=== PATIENT | female | born 1940 | race African-American/Black ===

== ENCOUNTER 2016-10-09 09:07 | Emergency (ER) | payer MEDICARE, OTHER ==
[~2016-10-09] VITALS: Ht 157.5 cm; Wt 64.9 kg
[~2016-10-09 09:07] MED LIST: ALLO100T PO; ALLO100T66 PO; AMLO5TAB4 PO; ASCO500T2 PO; ASCO500T3 PO; ASPI-39 PO; ASPI81TA2 PO; CA C1TAB38 PO; CALC-53 PO; CAND1TAB PO; CAND1TAB4 PO; CLON0.1T PO; CLON0.1T12 PO; CYAN10002 IJ; DOCU-27 PO; FELO10TA PO; FERR324T14 PO; FLUC100T4 PO; FOLI1TAB16 PO; GABA400C PO; HYDR-2666 PO; HYDR-2678 PO; HYDR30CR61 TP; LIDO30CR6 TP; LISI20TA PO; METO-269 PO; PANT40GR PO; PRED20TA PO; PRED5TAB PO; TEMA30CA PO
--- NOTE | 2016-10-09 09:30 | EKG ---
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
[2016-10-09 10:04] LABS: CALCIUM 8.5 mg/dL (8.5-10.1); GFR 8.2; POTASSIUM 3.5 mmol/L (3.5-5.1)
[2016-10-09 10:08] LABS: ALBUMIN 2.8 g/dL (3.4-5.0); ALBUMIN/GLOBULIN RATIO 0.5 (1.0-1.7); BASO % 0 % (0-3); EOS % 5 % (0-3); HEMATOCRIT 28.4 % (36.0-47.0); HEMOGLOBIN 9.2 g/dL (12.0-15.5); LYMPH # 1.4 x10^3/uL (1.0-4.8); LYMPH % 24 % (24-48); MEAN CORPUSCULAR HEMOGLOBIN 29 pg (25-35); MEAN CORPUSCULAR HGB CONC 33 g/dL (31-37); MEAN CORPUSCULAR VOLUME 89 fL (79-100); MONO % 13 % (0-9); NEUT % 57 % (31-73); PLATELET COUNT 99 x10^3/uL (140-400); RED BLOOD COUNT 3.18 x10^6/uL (3.50-5.40); RED CELL DISTRIBUTION WIDTH 19.5 % (11.5-14.5); TOTAL BILIRUBIN 0.9 mg/dL (0.2-1.0); WHITE BLOOD COUNT 5.9 x10^3/uL (4.0-11.0)
--- NOTE | 2016-10-09 10:16 | RAD ---
Portable chest, 10/09/2016: History: Cough, previous heart surgery Comparison is made to a study from 02/26/2014. The heart is mildly enlarged. The thoracic aorta is ectatic and contains a stent graft extending from the mid aortic arch down to the level of the diaphragm. The pulmonary vascularity is normal. No pulmonary infiltrates are seen. There is no evidence of pleural fluid. Mild spurring is present in the spine. Vascular stents are also noted medially in the right upper arm. IMPRESSION: 1. Interval insertion of a stent graft within the patient's ectatic thoracic aorta. 2. No acute cardiopulmonary abnormality is detected.
[2016-10-09] MEDS ORDERED: BENZ100C PO (10:52)
[2016-10-09] MEDS ORDERED: DOXY100C2 PO (10:52)
--- NOTE | 2016-10-09 10:58 | PHYS DOC ---
Past Medical History Past Medical History: Cancer, Hypertension, Renal Failure, Other Additional Past Medical Histor: COLON CA, BREAST CA, hemorroids Past Surgical History: Cancer Surgery, Other Additional Past Surgical Histo: COLON SX, BREAST SX Alcohol Use: Occasionally Drug Use: None Adult General Chief Complaint Chief Complaint: COUGH HPI HPI Patient is a 76 year old female who presents with cough and post-tussive emesis. No known fevers, no associated pain. Pt reports she couldn't complete the last hour of dialysis today due to the cough. She denies missing other sessions. No increased weight gain or orthopnea. No associated pain. Review of Systems Review of Systems Constitutional: Denies fever or chills [] Eyes: Denies change in visual acuity, redness, or eye pain [] HENT: Denies nasal congestion or sore throat [] Respiratory: per hpi Cardiovascular: Denies chest pain GI: Denies abdominal pain, nausea, vomiting, bloody stools or diarrhea [] : Denies dysuria or hematuria [] Musculoskeletal: Denies back pain or joint pain [] Integument: Denies rash or skin lesions [] Neurologic: Denies headache, focal weakness or sensory changes [] Current Medications Current Medications Current Medications Medications (Trade) Dose Ordered Sig/Kalpana Start Time Stop Time Status Last Admin Dose Admin Doxycycline Hyclate 100 mg/ Dextrose 100 ml @ 50 mls/hr 1X ONCE 10/09/16 11:00 10/09/16 12:59 Allergies Allergies Allergies Coded Allergies Type Severity Reaction Last Updated Verified No Known Drug Allergies 11/25/14 No Physical Exam Physical Exam Constitutional: Well developed, well nourished, no acute distress, non-toxic appearance. [] HENT: Normocephalic, atraumatic, bilateral external ears normal, oropharynx moist, no oral exudates, nose normal. [] Eyes: PERRLA, EOMI, conjunctiva normal, no discharge. [] Neck: Normal range of motion, no tenderness, supple, no stridor. [] Cardiovascular:Heart rate regular regular rhythm, no murmur [] Lungs & Thorax: Bilateral breath sounds , RUL crackles without wheeze, moderate air movement. Abdomen: Bowel sounds normal, soft, no tenderness, no masses, no pulsatile masses. [] Skin: Warm, dry, no erythema, no rash. [] Back: No tenderness, no CVA tenderness. [] Extremities: No tenderness, no cyanosis, no clubbing, ROM intact, no edema.neg homen's Neurologic: Alert and oriented X 3, normal motor function, normal sensory function, no focal deficits noted. [] Current Patient Data Vital Signs Vital Signs Date Time Temp Pulse Resp B/P (MAP) Pulse Ox O2 Delivery O2 Flow Rate FiO2 10/09/16 09:26 98.4 78 18 168/73 (104) 95 Room Air 98.4 Lab Values Laboratory Tests Test 10/09/16 09:45 White Blood Count 5.9 x10^3/uL (4.0-11.0) Red Blood Count 3.18 x10^6/uL (3.50-5.40) L Hemoglobin 9.2 g/dL (12.0-15.5) L Hematocrit 28.4 % (36.0-47.0) L Mean Corpuscular Volume 89 fL (79-100) Mean Corpuscular Hemoglobin 29 pg (25-35) Mean Corpuscular Hemoglobin Concent 33 g/dL (31-37) Red Cell Distribution Width 19.5 % (11.5-14.5) H Platelet Count 99 x10^3/uL (140-400) L Neutrophils (%) (Auto) 57 % (31-73) Lymphocytes (%) (Auto) 24 % (24-48) Monocytes (%) (Auto) 13 % (0-9) H Eosinophils (%) (Auto) 5 % (0-3) H Basophils (%) (Auto) 0 % (0-3) Neutrophils # (Auto) 3.4 x10^3uL (1.8-7.7) Lymphocytes # (Auto) 1.4 x10^3/uL (1.0-4.8) Monocytes # (Auto) 0.8 x10^3/uL (0.0-1.1) Eosinophils # (Auto) 0.3 x10^3/uL (0.0-0.7) Basophils # (Auto) 0.0 x10^3/uL (0.0-0.2) Platelet Estimate Pending Sodium Level 137 mmol/L (136-145) Potassium Level 3.5 mmol/L (3.5-5.1) Chloride Level 99 mmol/L (98-107) Carbon Dioxide Level 30 mmol/L (21-32) Anion Gap 8 (6-14) Blood Urea Nitrogen 30 mg/dL (7-20) H Creatinine 6.0 mg/dL (0.6-1.0) H Estimated GFR (Cockcroft-Gault) 8.2 BUN/Creatinine Ratio 5 (6-20) L Glucose Level 87 mg/dL (70-99) Calcium Level 8.5 mg/dL (8.5-10.1) Total Bilirubin 0.9 mg/dL (0.2-1.0) Aspartate Amino Transferase (AST) 20 U/L (15-37) Alanine Aminotransferase (ALT) 12 U/L (14-59) L Alkaline Phosphatase 75 U/L (46-116) Total Protein 8.0 g/dL (6.4-8.2) Albumin 2.8 g/dL (3.4-5.0) L Albumin/Globulin Ratio 0.5 (1.0-1.7) L Laboratory Tests 10/09/16 09:45 Laboratory Tests 10/09/16 09:45 EKG EKG [] 80 bpm, sinus, normal axis, QTC of 493, T-wave inversions in V2 through V6, 1 , 2, aVF, compared with previous EKG and there is no acute change Radiology/Procedures Radiology/Procedures Chest x-ray: Signed PATIENT: AIDEN ELIZABETH ACCOUNT: [id number] : 1940 LOCATION: ER AGE: 76 SEX: F EXAM STATUS: REG ER ORD. PHYSICIAN: ASHLEY MCNAMARA MD REASON: cough PROCEDURE: PORTABLE CHEST 1V Portable chest, 10/09/2016: History: Cough, previous heart surgery Comparison is made to a study from 02/26/2014. The heart is mildly enlarged. The thoracic aorta is ectatic and contains a stent graft extending from the mid aortic arch down to the level of the diaphragm. The pulmonary vascularity is normal. No pulmonary infiltrates are seen. There is no evidence of pleural fluid. Mild spurring is present in the spine. Vascular stents are also noted medially in the right upper arm. IMPRESSION: 1. Interval insertion of a stent graft within the patient's ectatic thoracic aorta. 2. No acute cardiopulmonary abnormality is detected. Course & Med Decision Making Course & Med Decision Making Pertinent Labs and Imaging studies reviewed. (See chart for details) pt has signs /symptoms of pneumonia with crackles noted in RUL. will treat with doxycycline and recommend continuing dialysis as planned. Return if she has worsening symptoms. Pt also given Tessalon pearles. Dragon Disclaimer Dragon Disclaimer This electronic medical record was generated, in whole or in part, using a voice recognition dictation system. Departure Departure Impression: Primary Impression: Cough Additional Impressions: Community acquired pneumonia End stage renal failure on dialysis Chronic anemia Disposition: HOME, SELF-CARE Condition: STABLE Patient Instructions: Cough, Adult, Pamo-hj-[id number] Scripts Benzonatate (TESSALON PERLE) 100 Mg Capsule 1 CAP PO TID Y for COUGH, #15 CAP Prov: ASHLEY MCNAMARA MD 10/09/16 Doxycycline Hyclate (DOXYCYCLINE HYCLATE) 100 Mg Capsule 1 CAP PO BID, #20 CAP Prov: ASHLEY MCNAMARA MD 10/09/16 Problem Qualifiers ASHLEY MCNAMARA MD October 09, 2016 10:58
[2016-10-09] MEDS ORDERED: DOXYCYCLINE HYCLATE 100 MG in IV DEXTROSE 5% 100 ML IV ONE (11:00)
[2016-10-09 12:25] LABS: ANISOCYTOSIS SLIGHT; PLT ESTIMATE DECREASED (ADEQUATE)
[2016-10-09 12:52] VITALS: BP 161/86
== END 2016-10-09 13:25 | disposition home or self-care (01) ==
LOC: ER 09:07
DX: J18.9 Pneumonia, unspecified organism (principal); I12.0 Hypertensive chronic kidney disease with stage 5 chronic kidney disease or end stage renal disease; N18.6 End stage renal disease; D53.9 Nutritional anemia, unspecified; Z99.2 Dependence on renal dialysis
CPT/HCPCS: 36415; 71010; 80053; 85007; 85027; 93005; 96365; 96366; 99285; J3490

== ENCOUNTER → 2017-05-18 | Outpatient (CLI) | payer MEDICARE, OTHER ==
[~2017-05-18] MED LIST changes: +ASPI-630 PO; -ASPI81TA2 PO; +BENZ100C PO; +DOCU-109 PO; -DOCU-27 PO; +DOXY100C2 PO; -HYDR-2666 PO; +HYDR-2758 PO
--- NOTE | 2017-05-19 11:00 | RAD ---
PA AND LATERAL CHEST RADIOGRAPH Clinical Indication: Aortic stent. Comparison: AP chest 10/09/2016. Findings: Stable cardiomegaly. Ectatic thoracic aorta. Stable stent of the mid aortic arch through the ascending thoracic aorta. Atherosclerotic abdominal aorta. Pulmonary vasculature is normal. The lungs are clear. No pleural effusion or pneumothorax is seen. There is no acute bone abnormality. Degenerative endplate spurring of the thoracic spine. IMPRESSION: No acute cardiopulmonary process.
--- NOTE | 2017-05-19 11:03 | RAD ---
KNEE 3 VIEWS RIGHT Clinical Indication: Fall on , right knee pain Comparison: Right knee, 3 views, 05/26/2011. Findings: There is no acute fracture or dislocation. There is medial compartment narrowing. Tiny tricompartmental marginal osteophytes. The patella is in anatomic position. Mild infrapatellar soft tissue swelling. There is no joint effusion. Atherosclerotic vascular calcifications. IMPRESSION: No acute fracture.
== END | disposition home or self-care (01) ==
LOC: RAD 10:19
PROVIDERS: ATTEND Family Medicine
DX: I51.7 Cardiomegaly (principal); I70.0 Atherosclerosis of aorta; M25.561 Pain in right knee; I77.810 Thoracic aortic ectasia; Q25.49 Other congenital malformations of aorta
CPT/HCPCS: 71020; 73562

== ENCOUNTER → 2017-09-25 | Outpatient (CLI) | payer MEDICARE, OTHER | END | disposition home or self-care (01) | LOC: RAD 13:30 | DX: M79.605 Pain in left leg (principal) | CPT/HCPCS: 73552 ==

== ENCOUNTER 2017-09-27 16:44 | Emergency (ER) | payer MEDICARE, OTHER | END 2017-09-27 19:10 | disposition home or self-care (01) | LOC: ER 16:44 | DX: S70.02XA Contusion of left hip, initial encounter (principal); I10 Essential (primary) hypertension; N19 Unspecified kidney failure; X58.XXXA Exposure to other specified factors, initial encounter; Y93.89 Activity, other specified; Y99.8 Other external cause status; Y92.89 Other specified places as the place of occurrence of the external cause | CPT/HCPCS: 76882; 93971; 99284-25 ==

== ENCOUNTER → 2018-07-04 | Day surgery (SDC) | payer MEDICARE, OTHER ==
[~2018-07-04] MED LIST changes: -CAND1TAB4 PO; +CINA30TA2 PO; +GABA-689 PO; -GABA400C PO; -HYDR-2758 PO; +HYDR-2761 PO; +IV NORMAL SALINE 1000ML BAG 1,000 ML IV SCH; +IV RINGERS,LACTATED 1000ML 1,000 ML IV SCH; +LIDOCAINE 1% PF 2 ML VIAL. ID PRN; +LIDOCAINE 1% PF 2 ML VIAL. ONE; +MIDAZOLAM HCL/PF 2 MG/2 ML VIAL. IV PRN; +PROPOFOL 20 ML IV ONE; +SEVE800T9 PO; +fentaNYL PF VIAL 100 MCG/2 ML VIAL IV PRN
[2018-07-04 10:37] VITALS: BP 151/90
--- NOTE | 2018-07-08 09:10 | PATHOLOGY ---
[facility] Accession Number: [id number] . 01 Material submitted: . PART A: ESOPHAGEAL BIOPSY PART B: RANDOM COLON BIOPSIES . 01 Clinical history: . Weight loss, diarrhea, colon cancer . 02 Diagnosis: A. Esophageal biopsies: - Segments of hyperplastic squamous esophageal mucosa showing acute inflammation with presence of yeast and pseudohyphae consistent with Jailene esophagitis, and segments of esophagogastric and gastric mucosa showing acute and chronic inflammation. . B. Colonic mucosa, random colon biopsies: - No significant pathologic abnormalities. LB/07/07/2018 . 02 Comment: Sections of the esophageal biopsy reveal segments of hyperplastic squamous esophageal mucosa showing acute inflammation. A properly controlled PAS stain for fungus is obtained and shows numerous yeast and pseudohyphae. The findings are consistent with Jailene esophagitis. There are also segments of esophagogastric and gastric mucosa showing acute and chronic inflammation. There is no evidence of Pinto's change, dysplasia, or malignancy. . Sections of the random colon biopsy reveal multiple segments of colonic mucosa. There is no evidence of a chronic destructive colitis, lymphocytic colitis, or collagenous colitis. (JPM/db; 07/07/2018) . Special stain performed: PAS stain for yeast/fungi on A1 . 02 Electronically signed: . Tj Ha MD, Pathologist NPI- [id number] . 01 Gross description: . A. Received in formalin labeled "Chavez Sofi, esophageal biopsy, rule out Pinto's, rule out cancer," are multiple segments of andre soft tissue measuring 1.5 x 0.4 x 0.1 cm in aggregate dimensions. The specimen is filtered and entirely submitted in cassette A1. . B. Received in formalin labeled "Chavez Sofi, random colon biopsies," are 4 segments of andre soft tissue measuring 1.0 x 0.9 x 0.3 cm in aggregate dimensions and ranging from 0.3 to 0.6 cm in maximum dimension. The specimen is submitted entirely in cassette B1. (TSD; 07/04/2018) TOB/TOB . 02 Pathologist provided ICD-10: B37.81, R63.4, R19.7 . 02 CPT . 476290, 298491 Specimen Comment: A courtesy copy of this report has been sent to Specimen Comment: [phone], . Specimen Comment: Report sent to / DR CHAN Performed at: 01 [facility] [address], [place] [id number] MD Pascual Boone MD Phone: [phone] Performed at: 02 [facility] [address] [place], [place] [id number] MD Tj Ha MD Phone: [phone]
== END | disposition home or self-care (01) ==
LOC: ENDOS 08:21
PROVIDERS: ATTEND Internal Medicine Gastroenterology
DX: K52.9 Noninfective gastroenteritis and colitis, unspecified (principal); K63.89 Other specified diseases of intestine; K64.0 First degree hemorrhoids; K21.0 Gastro-esophageal reflux disease with esophagitis; F41.9 Anxiety disorder, unspecified; I10 Essential (primary) hypertension; R63.4 Abnormal weight loss; Z80.3 Family history of malignant neoplasm of breast; Z79.82 Long term (current) use of aspirin; Z85.038 Personal history of other malignant neoplasm of large intestine; Z95.810 Presence of automatic (implantable) cardiac defibrillator; Z85.3 Personal history of malignant neoplasm of breast; Z95.5 Presence of coronary angioplasty implant and graft; Z79.899 Other long term (current) drug therapy; Z90.49 Acquired absence of other specified parts of digestive tract; Z98.890 Other specified postprocedural states
CPT/HCPCS: 43239; 45380; J2704; 88305

== ENCOUNTER → 2018-12-16 | Outpatient (CLI) | payer MEDICARE, OTHER ==
[2018-07-04 10:37] VITALS: BP 151/90
[~2018-12-16] MED LIST changes: -IV NORMAL SALINE 1000ML BAG 1,000 ML IV SCH; -IV RINGERS,LACTATED 1000ML 1,000 ML IV SCH; -LIDOCAINE 1% PF 2 ML VIAL. ID PRN; -LIDOCAINE 1% PF 2 ML VIAL. ONE; -MIDAZOLAM HCL/PF 2 MG/2 ML VIAL. IV PRN; -PROPOFOL 20 ML IV ONE; -fentaNYL PF VIAL 100 MCG/2 ML VIAL IV PRN
== END | disposition home or self-care (01) ==
LOC: LAB 11:30
PROVIDERS: ATTEND Internal Medicine Nephrology
DX: I12.0 Hypertensive chronic kidney disease with stage 5 chronic kidney disease or end stage renal disease (principal); N18.6 End stage renal disease; Z99.2 Dependence on renal dialysis
CPT/HCPCS: 36415; 84132

== ENCOUNTER 2020-01-04 15:43 | Inpatient (IN) | payer MEDICARE, OTHER ==
[~2020-01-04] VITALS: Ht 160 cm; Wt 57.2 kg
[~2020-01-04 15:43] MED LIST changes: -ASCO500T2 PO; +ASCO500T4 PO; -FELO10TA PO; +FELO10TA4 PO
[2020-01-04 15:56] VITALS: BP 151/90
[2020-01-04 18:22] LABS: BASO % 1 % (0-3); EOS % 1 % (0-3); HEMATOCRIT 36.8 % (36.0-47.0); HEMOGLOBIN 11.4 g/dL (12.0-15.5); LYMPH # 1.1 x10^3/uL (1.0-4.8); LYMPH % 39 % (24-48); MEAN CORPUSCULAR HEMOGLOBIN 30 pg (25-35); MEAN CORPUSCULAR HGB CONC 31 g/dL (31-37); MEAN CORPUSCULAR VOLUME 96 fL (79-100); MONO # 0.4 x10^3/uL (0.0-1.1); MONO % 13 % (0-9); NEUT # 1.4 x10^3/uL (1.8-7.7); NEUT % 47 % (31-73); PLATELET COUNT 58 x10^3/uL (140-400); RED BLOOD COUNT 3.84 x10^6/uL (3.50-5.40); WHITE BLOOD COUNT 2.9 x10^3/uL (4.0-11.0)
[2020-01-04 18:27] LABS: ALBUMIN 2.8 g/dL (3.4-5.0); ALBUMIN/GLOBULIN RATIO 0.6 (1.0-1.7); CALCIUM 9.4 mg/dL (8.5-10.1); CREATININE 5.8 mg/dL (0.6-1.0); GFR 8.5; POTASSIUM 3.8 mmol/L (3.5-5.1); TOTAL BILIRUBIN 1.2 mg/dL (0.2-1.0); TOTAL PROTEIN 7.7 g/dL (6.4-8.2)
--- NOTE | 2020-01-04 19:19 | HP ---
ADMIT DATE: 01/04/2020 CHIEF COMPLAINT: Shortness of breath. HISTORY OF PRESENT ILLNESS: This is an 79-year-old black female with long history of end-stage renal disease and mild cardiac issues, presented with increasing cough, shortness of breath, fatigue, nausea and vomiting over the last 4-5 days. She was tested for COVID at [facility] about 2 weeks ago. Test was negative and x-ray of her foot for foot injury and pain was negative as well. She has had increasing shortness of breath and scant sputum production with some diarrhea and vomiting since then. PAST MEDICAL HISTORY: Multiple. MEDICATIONS: Listed per the chart. ALLERGIES: No known allergies. She sees Dr. Ramos for her dialysis. SOCIAL HISTORY: She is , nonsmoker, nondrinker. FAMILY HISTORY: Unremarkable. REVIEW OF SYSTEMS: As above. OBJECTIVE: ENT: All within normal limits. NECK: No masses, nodes or bruits. LUNGS: Bibasilar crackles and expiratory wheezes, mild to moderate in nature with rhonchi present diffusely. CARDIOVASCULAR: Regular rate. No irregular beat or tachycardia. ABDOMEN: Soft, benign and nontender. EXTREMITIES: She has shunts in her right arm notable. No joint or skin lesions, 1+ edema in the ankles. NEUROLOGIC: Physiologic and nonfocal. ASSESSMENT: Respiratory distress, multifactorial in nature. Must consider COVID among other infectious diagnoses less likely cardiac or fluid issues, end-stage renal disease, on dialysis as well. PLAN: As ordered. SHIRIN CHAN MD DR: KANDICE/zana JOB#: [id number] / [id number]
[2020-01-04 19:44] VITALS: BP 174/78
[2020-01-04] MEDS: BENZONATATE 100 MG CAPSULE. PO PRN (21:27)
[2020-01-04] MEDS: TEMAZEPAM 15 MG CAPSULE PO PRN (21:30)
[2020-01-04] MEDS: SEVELAMER CARBONATE 800 MG TABLET. PO SCH (21:30)
[2020-01-04] MEDS: ALBUTEROL SULFATE 8GM INHALER. INH SCH (21:31)
--- NOTE | 2020-01-04 22:54 | RAD ---
Exam: Chest one view INDICATION: Shortness of breath TECHNIQUE: Frontal view of the chest Comparisons: None FINDINGS: Heart is enlarged. Aortic stent metallic stent is noted. Pulmonary vessels are within normal limits. Lungs are clear. No pleural effusion. IMPRESSION: Cardiac megaly without acute pulmonary process. Electronically signed by: Cr Whipple MD (01/04/2020 10:51 PM) [id number]
--- NOTE | 2020-01-04 22:55 | RAD ---
EXAM: AP and lateral views right foot DATE: 01/04/2020 7:12 PM INDICATION: Right foot pain COMPARISON: 09/21/2015 FINDINGS: Chronic/healed fracture deformity proximal phalanx right great toe. Hallux valgus. Angulation at the second-fourth metatarsal necks, new compared to 09/21/2015 suspicious for acute or subacute fractures. Forefoot soft tissue swelling is seen. Decreased bone mineral density. IMPRESSION: 1. Suspected acute or subacute fractures of the second-fourth metatarsal necks, new compared to 09/21/2015. 2. Chronic/healed fracture proximal phalanx great toe. Electronically signed by: Faustino Hernandez MD (01/04/2020 10:52 PM) ADRIEN
[2020-01-04 23:05] VITALS: BP 162/72
[2020-01-05 03:48] VITALS: BP 154/71
[2020-01-05] MEDS: methylPREDNISolone SOD SUCC PF 40 MG/ML VIAL. IV SCH ×3 (05:21→21:31)
[2020-01-05 07:00] VITALS: BP 153/67
[2020-01-05] MEDS: ALBUTEROL SULFATE 8GM INHALER. INH SCH ×4 (08:00→21:31)
[2020-01-05] MEDS: SEVELAMER CARBONATE 800 MG TABLET. PO SCH ×3 (08:00→17:28)
--- NOTE | 2020-01-05 08:20 | PDOC ---
Provider Note Provider Note no temp, cxr clear, but wbc 2900, platelts 58K, duration ?, no prior heme history i know of- heme consult, ernesto ,podiatry con. re metatarsal fractures Justicifation of Admission Dx: Justifications for Admission: Justification of Admission Dx: Yes Respiratory Failure: Severe Resp Distress SHIRIN CHAN MD Jan 05, 2020 08:20
[2020-01-05] MEDS: CINACALCET HCL 30 MG TABLET PO SCH (09:00)
[2020-01-05] MEDS ORDERED: ALBUMIN HUMAN 25% 200 ML IV PRN (09:15)
[2020-01-05] MEDS ORDERED: DIALYSIS PATIENT. MC PRN ×2 (09:15)
[2020-01-05] MEDS ORDERED: IV NORMAL SALINE 1000ML BAG 1,000 ML IV PRN ×2 (09:15)
[2020-01-05] MEDS ORDERED: LIDOCAINE 1% PF 2 ML VIAL. ONE (09:26)
[2020-01-05] MEDS ORDERED: LIDOCAINE 1% Multi-Dose 20 ML VIAL. INJ ONE (09:30)
[2020-01-05] MEDS ORDERED: cloNIDine HCL 0.1 MG TABLET PO PRN (11:45)
[2020-01-05] MEDS ORDERED: diphenhydrAMINE 50 MG/ML VIAL IV PRN (11:45)
[2020-01-05] MEDS ORDERED: ACETAMINOPHEN 500 MG TABLET PO ONE (12:30)
--- NOTE | 2020-01-05 13:42 | PDOC2 ---
CONSULT Date of Consult Date of Consult DATE: 01/05/20 TIME: 13:36 Reason for Consult Reason for Consult: ESRD Referring Physician Referring Physician: DUSTIN Identification/Chief Complaint Chief Complaint SOB Source Source: Chart review, Patient History of Present Illness Reason for Visit: THIS IS AN 79 YR OLD PT ON HD FOR HER ESRD. ON OP HD TTS. LAST WENT ON SATURDAY. SHE IS COMPLIANT. SHE IS ADMITTED WITH SOB. COVID 19 TEST PENDING. HER LABS ARE C/W ESRD. ESRD IS DUE TO HTN. SHE IS ANURIC. Past Medical History Cardiovascular: HTN GI: Other Heme/Onc: Anemia NOS Musculoskeletal: Weakness Renal/: Chronic renal failure, UTI Endocrine: Hyperparathyroidism Past Surgical History Past Surgical History AORTIC GRAFT. Past Surgical History: Cholecystectomy, Mastectomy, Tonsillectomy, Colon Resection Family History Family History: No Significant Social History ALCOHOL: none Drugs: None Lives: with Family Current Medications Current Medications Current Medications Levofloxacin/ Dextrose 100 ml @ 100 mls/hr 1X ONCE IV Last administered on 01/05/20at 05:20; Start 01/04/20 at 17:15; Stop 01/04/20 at 18:14; Status DC Methylprednisolone Sodium Succinate (SOLU-Medrol 40MG VIAL) 40 mg Q12HR IV Last administered on 01/05/20at 09:00; Start 01/04/20 at 21:00 Cinacalcet (Sensipar) 30 mg DAILY PO ; Start 01/05/20 at 09:00 Sevelamer Carbonate (Renvela) 2,400 mg TIDWMEALS PO Last administered on 01/04/20at 21:30; Start 01/04/20 at 18:00 Temazepam (Restoril) 30 mg PRN QHS PRN PO INSOMNIA Last administered on 01/04/20at 21:30; Start 01/04/20 at 18:00 Albuterol Sulfate (Ventolin Hfa) 1 puff RTQID INH Last administered on 01/04/20at 21:31; Start 01/04/20 at 20:00 Benzonatate (Tessalon Perle) 200 mg TID PRN PRN PO COUGH Last administered on 01/04/20at 21:27; Start 01/04/20 at 19:15 Famotidine (Pepcid) 20 mg QHS PO ; Start 01/05/20 at 21:00 Sodium Chloride 1,000 ml @ 1,000 mls/hr Q1H PRN IV hypotension; Start 01/05/20 at 09:15; Stop 01/05/20 at 15:14 Albumin Human 200 ml @ 200 mls/hr 1X PRN PRN IV Hypotension; Start 01/05/20 at 09:15; Stop 01/05/20 at 15:14 Sodium Chloride 1,000 ml @ 400 mls/hr Q2H30M PRN IV PATENCY; Start 01/05/20 at 09:15; Stop 01/05/20 at 21:14 Info (PHARMACY MONITORING -- do not chart) 1 each PRN DAILY PRN MC SEE COMMENTS; Start 01/05/20 at 09:15 Info (PHARMACY MONITORING -- do not chart) 1 each PRN DAILY PRN MC SEE COMME NTS; Start 01/05/20 at 09:15 Lidocaine HCl (Lidocaine 1% 20ml Vial) 20 ml 1X ONCE INJ Last administered on 01/05/20at 09:30; Start 01/05/20 at 09:30; Stop 01/05/20 at 09:51; Status DC Lidocaine HCl (Xylocaine-Mpf 1% 2ml Vial) 2 ml STK-MED ONCE .ROUTE ; Start 01/05/20 at 09:26; Stop 01/05/20 at 09:27; Status DC Diphenhydramine HCl (Benadryl) 25 mg 1X PRN PRN IV ITCHING Last administered on 01/05/20at 11:43; Start 01/05/20 at 11:45; Stop 01/06/20 at 11:44 Clonidine HCl (Catapres) 0.1 mg 1X PRN PRN PO SBP > 180 Last administered on 01/05/20at 11:47; Start 01/05/20 at 11:45; Stop 01/06/20 at 11:44 Acetaminophen (Tylenol) 500 mg 1X ONCE PO ; Start 01/05/20 at 12:30; Stop 01/05/20 at 12:31; Status DC Active Scripts Active Reported Sensipar (Cinacalcet Hcl) 30 Mg Tablet 1 Tab PO DAILY Renvela (Sevelamer Carbonate) 800 Mg Tablet 3 Tab PO TID Temazepam 30 Mg Capsule 30 Mg PO PRN QHS Allergies Allergies: Coded Allergies: No Known Drug Allergies (Unverified , 07/04/18) ROS General: YES: Fatigue PSYCHOLOGICAL ROS: YES: Anxiety Eyes: Yes Decreased vision HEENT: YES: Fifi ALLERGY AND IMMUNOLOGY: YES: Seasonal Allergies Respiratory: YES: Cough, Shortness of breath Gastrointestinal: Yes Constipation Genitourinary: YES Other (ANURIA) Musculoskeletal: Yes Joint Pain, Yes Muscular Weakness Neurological: Yes Weakness Skin: Yes Dry Skin Physical Exam General: Alert, Oriented X3, Cooperative, No acute distress HEENT: Atraumatic, PERRLA Lungs: Clear to auscultation Heart: Regular rate, Normal S1, Normal S2 Abdomen: Normal bowel sounds, Soft, No tenderness Extremities: No clubbing Neuro: Normal speech, Sensation intact Psych/Mental Status: Mental status NL, Mood NL MUSCULOSKELETAL: No joint tenderness, No deformity, No swelling Vitals VITALS Vital Signs Date Time Temp Pulse Resp B/P (MAP) Pulse Ox O2 Delivery O2 Flow Rate FiO2 01/05/20 11:47 75 205/94 01/05/20 08:00 Room Air 01/05/20 07:00 97.8 16 97 97.8 01/04/20 23:05 1.5 Labs Labs Laboratory Tests Test 01/04/20 17:50 White Blood Count 2.9 x10^3/uL (4.0-11.0) Red Blood Count 3.84 x10^6/uL (3.50-5.40) Hemoglobin 11.4 g/dL (12.0-15.5) Hematocrit 36.8 % (36.0-47.0) Mean Corpuscular Volume 96 fL (79-100) Mean Corpuscular Hemoglobin 30 pg (25-35) Mean Corpuscular Hemoglobin Concent 31 g/dL (31-37) Red Cell Distribution Width 20.0 % (11.5-14.5) Platelet Count 58 x10^3/uL (140-400) Neutrophils (%) (Auto) 47 % (31-73) Lymphocytes (%) (Auto) 39 % (24-48) Monocytes (%) (Auto) 13 % (0-9) Eosinophils (%) (Auto) 1 % (0-3) Basophils (%) (Auto) 1 % (0-3) Neutrophils # (Auto) 1.4 x10^3/uL (1.8-7.7) Lymphocytes # (Auto) 1.1 x10^3/uL (1.0-4.8) Monocytes # (Auto) 0.4 x10^3/uL (0.0-1.1) Eosinophils # (Auto) 0.0 x10^3/uL (0.0-0.7) Basophils # (Auto) 0.0 x10^3/uL (0.0-0.2) Sodium Level 132 mmol/L (136-145) Potassium Level 3.8 mmol/L (3.5-5.1) Chloride Level 96 mmol/L (98-107) Carbon Dioxide Level 29 mmol/L (21-32) Anion Gap 7 (6-14) Blood Urea Nitrogen 36 mg/dL (7-20) Creatinine 5.8 mg/dL (0.6-1.0) Estimated GFR (Cockcroft-Gault) 8.5 BUN/Creatinine Ratio 6 (6-20) Glucose Level 112 mg/dL (70-99) Calcium Level 9.4 mg/dL (8.5-10.1) Total Bilirubin 1.2 mg/dL (0.2-1.0) Aspartate Amino Transf (AST/SGOT) 17 U/L (15-37) Alanine Aminotransferase (ALT/SGPT) 14 U/L (14-59) Alkaline Phosphatase 82 U/L (46-116) Total Protein 7.7 g/dL (6.4-8.2) Albumin 2.8 g/dL (3.4-5.0) Albumin/Globulin Ratio 0.6 (1.0-1.7) Laboratory Tests Test 01/04/20 17:50 White Blood Count 2.9 x10^3/uL (4.0-11.0) Red Blood Count 3.84 x10^6/uL (3.50-5.40) Hemoglobin 11.4 g/dL (12.0-15.5) Hematocrit 36.8 % (36.0-47.0) Mean Corpuscular Volume 96 fL (79-100) Mean Corpuscular Hemoglobin 30 pg (25-35) Mean Corpuscular Hemoglobin Concent 31 g/dL (31-37) Red Cell Distribution Width 20.0 % (11.5-14.5) Platelet Count 58 x10^3/uL (140-400) Neutrophils (%) (Auto) 47 % (31-73) Lymphocytes (%) (Auto) 39 % (24-48) Monocytes (%) (Auto) 13 % (0-9) Eosinophils (%) (Auto) 1 % (0-3) Basophils (%) (Auto) 1 % (0-3) Neutrophils # (Auto) 1.4 x10^3/uL (1.8-7.7) Lymphocytes # (Auto) 1.1 x10^3/uL (1.0-4.8) Monocytes # (Auto) 0.4 x10^3/uL (0.0-1.1) Eosinophils # (Auto) 0.0 x10^3/uL (0.0-0.7) Basophils # (Auto) 0.0 x10^3/uL (0.0-0.2) Sodium Level 132 mmol/L (136-145) Potassium Level 3.8 mmol/L (3.5-5.1) Chloride Level 96 mmol/L (98-107) Carbon Dioxide Level 29 mmol/L (21-32) Anion Gap 7 (6-14) Blood Urea Nitrogen 36 mg/dL (7-20) Creatinine 5.8 mg/dL (0.6-1.0) Estimated GFR (Cockcroft-Gault) 8.5 BUN/Creatinine Ratio 6 (6-20) Glucose Level 112 mg/dL (70-99) Calcium Level 9.4 mg/dL (8.5-10.1) Total Bilirubin 1.2 mg/dL (0.2-1.0) Aspartate Amino Transf (AST/SGOT) 17 U/L (15-37) Alanine Aminotransferase (ALT/SGPT) 14 U/L (14-59) Alkaline Phosphatase 82 U/L (46-116) Total Protein 7.7 g/dL (6.4-8.2) Albumin 2.8 g/dL (3.4-5.0) Albumin/Globulin Ratio 0.6 (1.0-1.7) Images Images Exam: Chest one view INDICATION: Shortness of breath TECHNIQUE: Frontal view of the chest Comparisons: None FINDINGS: Heart is enlarged. Aortic stent metallic stent is noted. Pulmonary vessels are within normal limits. Lungs are clear. No pleural effusion. IMPRESSION: Cardiac megaly without acute pulmonary process. Assessment/Plan Assessment/Plan IMP DYSPNEA ESRD ANEMIA HTN HX PANCYTOPENIA R FOOT TOE FX PLAN HD TODAY UF TO DW COVID 19 PENDING ELEUTERIO NEEDED WILL FOLLOW ALMA ELIZONDO MD Jan 05, 2020 13:42
--- NOTE | 2020-01-05 14:38 | NUR ---
SW following. Reviewed chart and discussed with RN. Pt from home with spouse. Spoke with spouse who provides pt with transportation to out-patient dialysis on Tuesdays, and Saturdays at [facility], , (fax). Pt has has HH in the past and pt's spouse would like HH orders on discharge. Patient Choice of Vendor form completed and initial referral sent to [facility]. Pt on room air. Pt COVID pending. Pt on a renal diet. SW to follow.
[2020-01-05 15:00] VITALS: BP 110/55
--- NOTE | 2020-01-05 15:29 | PDOC2 ---
CONSULT Date of Consult Date of Consult DATE: 01/05/20 TIME: 15:21 Reason for Consult Reason for Consult: Pancytopenia Referring Physician Referring Physician: Dr. Nix Identification/Chief Complaint Chief Complaint Abdominal pain and nausea Problems: (1) Pancytopenia Source Source: Chart review, Patient History of Present Illness Reason for Visit: Sofi Chavez is an 79-year-old -Mexican female with history of end- stage renal disease who is currently on dialysis. She has been admitted to the hospital after presenting with shortness of breath cough and intractable nausea and vomiting. The patient reports that she has had recurrent episodes of vomiting after consumption of food. She denies weight loss over the past year. She denies hematemesis or melena or hematochezia or bright red blood per rectum. She was recently tested for COVID-19 and this returned negative. Patient denies a prior history of blood disorders. We have been consulted due to pancytopenia that was noted on her blood work. Past Medical History Cardiovascular: HTN GI: Other Heme/Onc: Anemia NOS Musculoskeletal: Weakness Renal/: Chronic renal failure, UTI Endocrine: Hyperparathyroidism Past Surgical History Past Surgical History: Cholecystectomy, Mastectomy, Tonsillectomy, Colon Resection Family History Family History: No Significant Social History ALCOHOL: none Drugs: None Lives: with Family Current Medications Current Medications Current Medications Levofloxacin/ Dextrose 100 ml @ 100 mls/hr 1X ONCE IV Last administered on 01/05/20at 05:20; Start 01/04/20 at 17:15; Stop 01/04/20 at 18:14; Status DC Methylprednisolone Sodium Succinate (SOLU-Medrol 40MG VIAL) 40 mg Q12HR IV Last administered on 01/05/20at 09:00; Start 01/04/20 at 21:00 Cinacalcet (Sensipar) 30 mg DAILY PO ; Start 01/05/20 at 09:00 Sevelamer Carbonate (Renvela) 2,400 mg TIDWMEALS PO Last administered on 01/04/20 21:30; Start 01/04/20 at 18:00 Temazepam (Restoril) 30 mg PRN QHS PRN PO INSOMNIA Last administered on 01/04/20at 21:30; Start 01/04/20 at 18:00 Albuterol Sulfate (Ventolin Hfa) 1 puff RTQID INH Last administered on 01/04/20at 21:31; Start 01/04/20 at 20:00 Benzonatate (Tessalon Perle) 200 mg TID PRN PRN PO COUGH Last administered on 01/04/20at 21:27; Start 01/04/20 at 19:15 Famotidine (Pepcid) 20 mg QHS PO ; Start 01/05/20 at 21:00 Sodium Chloride 1,000 ml @ 1,000 mls/hr Q1H PRN IV hypotension; Start 01/05/20 at 09:15; Stop 01/05/20 at 15:14; Status DC Albumin Human 200 ml @ 200 mls/hr 1X PRN PRN IV Hypotension; Start 01/05/20 at 09:15; Stop 01/05/20 at 15:14; Status DC Sodium Chloride 1,000 ml @ 400 mls/hr Q2H30M PRN IV PATENCY; Start 01/05/20 at 09:15; Stop 01/05/20 at 21:14 Info (PHARMACY MONITORING -- do not chart) 1 each PRN DAILY PRN MC SEE COMMENTS; Start 01/05/20 at 09:15 Info (PHARMACY MONITORING -- do not chart) 1 each PRN DAILY PRN MC SEE COM MENTS; Start 01/05/20 at 09:15 Lidocaine HCl (Lidocaine 1% 20ml Vial) 20 ml 1X ONCE INJ Last administered on 01/05/20at 09:30; Start 01/05/20 at 09:30; Stop 01/05/20 at 09:51; Status DC Lidocaine HCl (Xylocaine-Mpf 1% 2ml Vial) 2 ml STK-MED ONCE .ROUTE ; Start 01/05/20 at 09:26; Stop 01/05/20 at 09:27; Status DC Diphenhydramine HCl (Benadryl) 25 mg 1X PRN PRN IV ITCHING Last administered on 01/05/20at 11:43; Start 01/05/20 at 11:45; Stop 01/06/20 at 11:44 Clonidine HCl (Catapres) 0.1 mg 1X PRN PRN PO SBP > 180 Last administered on 01/05/20at 11:47; Start 01/05/20 at 11:45; Stop 01/06/20 at 11:44 Acetaminophen (Tylenol) 500 mg 1X ONCE PO Last administered on 01/05/20at 12:30; Start 01/05/20 at 12:30; Stop 01/05/20 at 12:31; Status DC Active Scripts Active Reported Sensipar (Cinacalcet Hcl) 30 Mg Tablet 1 Tab PO DAILY Renvela (Sevelamer Carbonate) 800 Mg Tablet 3 Tab PO TID Temazepam 30 Mg Capsule 30 Mg PO PRN QHS Allergies Allergies: Coded Allergies: No Known Drug Allergies (Unverified , 07/04/18) ROS General: No: Chills, Night Sweats PSYCHOLOGICAL ROS: No: Anxiety, Behavioral Disorder Eyes: No Blurry vision, No Decreased vision HEENT: No: Heacaches, Visual Changes ALLERGY AND IMMUNOLOGY: No: Hives, Nasal Congestion Hematological and Lymphatic: No: Bleeding Problems, Brusing ENDOCRINE: No: Breast Changes, Galactorrhea Breast: No New/Changing Breast Lumps, No Nipple changes Respiratory: YES: Cough; No: Hemoptysis, Orthopnea, Pleuritic Pain Cardiovascular: No Chest Pain, No Palpitations Gastrointestinal: Yes Nausea, Yes Vomiting; No Abdominal Pain, No Diarrhea, No Constipation Genitourinary: No Dysuria, No Flank Pain Musculoskeletal: No Gait Disturbance, No Joint Pain Neurological: No Behavorial Changes, No Bowel/Bladder ControlChng Skin: No Dry Skin, No Rash Physical Exam General: Alert, Oriented X3 HEENT: Atraumatic, PERRLA Lungs: Clear to auscultation Heart: Regular rate, Normal S1, Normal S2 Abdomen: Normal bowel sounds, Soft, No tenderness, No hepatosplenomegaly Extremities: No clubbing Skin: No rashes, No breakdown Neuro: Normal speech Psych/Mental Status: Mental status NL MUSCULOSKELETAL: No deformity, No swelling Vitals VITALS Vital Signs Date Time Temp Pulse Resp B/P (MAP) Pulse Ox O2 Delivery O2 Flow Rate FiO2 01/05/20 11:47 75 205/94 01/05/20 08:00 Room Air 01/05/20 07:00 97.8 16 97 97.8 01/04/20 23:05 1.5 Labs Labs Laboratory Tests Test 01/04/20 17:50 White Blood Count 2.9 x10^3/uL (4.0-11.0) Red Blood Count 3.84 x10^6/uL (3.50-5.40) Hemoglobin 11.4 g/dL (12.0-15.5) Hematocrit 36.8 % (36.0-47.0) Mean Corpuscular Volume 96 fL (79-100) Mean Corpuscular Hemoglobin 30 pg (25-35) Mean Corpuscular Hemoglobin Concent 31 g/dL (31-37) Red Cell Distribution Width 20.0 % (11.5-14.5) Platelet Count 58 x10^3/uL (140-400) Neutrophils (%) (Auto) 47 % (31-73) Lymphocytes (%) (Auto) 39 % (24-48) Monocytes (%) (Auto) 13 % (0-9) Eosinophils (%) (Auto) 1 % (0-3) Basophils (%) (Auto) 1 % (0-3) Neutrophils # (Auto) 1.4 x10^3/uL (1.8-7.7) Lymphocytes # (Auto) 1.1 x10^3/uL (1.0-4.8) Monocytes # (Auto) 0.4 x10^3/uL (0.0-1.1) Eosinophils # (Auto) 0.0 x10^3/uL (0.0-0.7) Basophils # (Auto) 0.0 x10^3/uL (0.0-0.2) Sodium Level 132 mmol/L (136-145) Potassium Level 3.8 mmol/L (3.5-5.1) Chloride Level 96 mmol/L (98-107) Carbon Dioxide Level 29 mmol/L (21-32) Anion Gap 7 (6-14) Blood Urea Nitrogen 36 mg/dL (7-20) Creatinine 5.8 mg/dL (0.6-1.0) Estimated GFR (Cockcroft-Gault) 8.5 BUN/Creatinine Ratio 6 (6-20) Glucose Level 112 mg/dL (70-99) Calcium Level 9.4 mg/dL (8.5-10.1) Total Bilirubin 1.2 mg/dL (0.2-1.0) Aspartate Amino Transf (AST/SGOT) 17 U/L (15-37) Alanine Aminotransferase (ALT/SGPT) 14 U/L (14-59) Alkaline Phosphatase 82 U/L (46-116) Total Protein 7.7 g/dL (6.4-8.2) Albumin 2.8 g/dL (3.4-5.0) Albumin/Globulin Ratio 0.6 (1.0-1.7) Laboratory Tests Test 01/04/20 17:50 White Blood Count 2.9 x10^3/uL (4.0-11.0) Red Blood Count 3.84 x10^6/uL (3.50-5.40) Hemoglobin 11.4 g/dL (12.0-15.5) Hematocrit 36.8 % (36.0-47.0) Mean Corpuscular Volume 96 fL (79-100) Mean Corpuscular Hemoglobin 30 pg (25-35) Mean Corpuscular Hemoglobin Concent 31 g/dL (31-37) Red Cell Distribution Width 20.0 % (11.5-14.5) Platelet Count 58 x10^3/uL (140-400) Neutrophils (%) (Auto) 47 % (31-73) Lymphocytes (%) (Auto) 39 % (24-48) Monocytes (%) (Auto) 13 % (0-9) Eosinophils (%) (Auto) 1 % (0-3) Basophils (%) (Auto) 1 % (0-3) Neutrophils # (Auto) 1.4 x10^3/uL (1.8-7.7) Lymphocytes # (Auto) 1.1 x10^3/uL (1.0-4.8) Monocytes # (Auto) 0.4 x10^3/uL (0.0-1.1) Eosinophils # (Auto) 0.0 x10^3/uL (0.0-0.7) Basophils # (Auto) 0.0 x10^3/uL (0.0-0.2) Sodium Level 132 mmol/L (136-145) Potassium Level 3.8 mmol/L (3.5-5.1) Chloride Level 96 mmol/L (98-107) Carbon Dioxide Level 29 mmol/L (21-32) Anion Gap 7 (6-14) Blood Urea Nitrogen 36 mg/dL (7-20) Creatinine 5.8 mg/dL (0.6-1.0) Estimated GFR (Cockcroft-Gault) 8.5 BUN/Creatinine Ratio 6 (6-20) Glucose Level 112 mg/dL (70-99) Calcium Level 9.4 mg/dL (8.5-10.1) Total Bilirubin 1.2 mg/dL (0.2-1.0) Aspartate Amino Transf (AST/SGOT) 17 U/L (15-37) Alanine Aminotransferase (ALT/SGPT) 14 U/L (14-59) Alkaline Phosphatase 82 U/L (46-116) Total Protein 7.7 g/dL (6.4-8.2) Albumin 2.8 g/dL (3.4-5.0) Albumin/Globulin Ratio 0.6 (1.0-1.7) Assessment/Plan Assessment/Plan Assessment: Pancytopenia ESRD on hemodialysis Intractable nausea and vomiting Hypertension Recommendations: -We will check iron studies, B12, copper -Hospital lab does not allow for folate testing. Would recommend checking this as outpatient -Suspect that pancytopenia is likely secondary to myelosuppression from ESRD -Can discuss further evaluation with bone marrow biopsy as outpatient -Consider EGD for intractable nausea and vomiting -Other care per Dr. Nix and nephrology Thank you for the consult Alcides Gomez MD Medical Oncology/Hematology Ph: [phone] AXEL GOMEZ MD Jan 05, 2020 15:29
[2020-01-05] MEDS ORDERED: ONDANSETRON PF 4 MG/2 ML VIAL. IVP PRN (18:00)
[2020-01-05 19:00] VITALS: BP 105/67
[2020-01-05] MEDS: FAMOTIDINE 20 MG TABLET. PO SCH (21:31)
[2020-01-05] MEDS: TEMAZEPAM 15 MG CAPSULE PO PRN (21:31)
[2020-01-05] MEDS: BENZONATATE 100 MG CAPSULE. PO PRN (21:31)
[2020-01-05 23:25] VITALS: BP 109/64
[2020-01-06 03:15] VITALS: BP 119/78
[2020-01-06 07:00] VITALS: BP 126/94
[2020-01-06] MEDS: ALBUTEROL SULFATE 8GM INHALER. INH SCH ×4 (08:00→20:00)
--- NOTE | 2020-01-06 08:11 | PDOC ---
Provider Note Provider Note vss, no temp- heme labs ok- pod. conult re fractures pending- covid neg so add duoneb for wheezing- sleeping now, no dyspnea, O2 sat good- will likely need snf re foot fractures/dialysis/ general weakness- po pred now, see how gi status goes Justicifation of Admission Dx: Justifications for Admission: Justification of Admission Dx: Yes Respiratory Failure: Severe Resp Distress SHIRIN CHAN MD Jan 06, 2020 08:11
[2020-01-06] MEDS: IPRATRPIUM/ALBUTEROL 0.5/2.5MG 3 ML NEBU. NEB SCH ×3 (09:00→20:57)
[2020-01-06] MEDS: SEVELAMER CARBONATE 800 MG TABLET. PO SCH ×3 (09:33→17:00)
[2020-01-06] MEDS: predniSONE 20 MG TABLET PO SCH (09:33)
[2020-01-06] MEDS: CINACALCET HCL 30 MG TABLET PO SCH (09:41)
--- NOTE | 2020-01-06 10:20 | NUR ---
Pt's HR elevated from 130's-140's. This RN notified Dr. Nix of this change per telephone. Orders received for a STAT EKG, echocardiogram, and TSH lab. Will monitor pt closely.
--- NOTE | 2020-01-06 10:35 | PDOC ---
Renal-Progress Notes Subjective Notes Notes NO NEW COMPLAINTS, LESS SOB, TOE PAIN History of Present Illness Hx of present illness STABLE Vitals Vitals Vital Signs Date Time Temp Pulse Resp B/P (MAP) Pulse Ox O2 Delivery O2 Flow Rate FiO2 01/06/20 08:30 Room Air 1.5 01/06/20 07:00 97.4 137 18 126/94 (105) 100 97.4 Weight Weight [ ] I.O. Intake and Output Intake and Output 01/06/20 07:00 Intake Total 780 ml Balance 780 ml Intake Oral 780 ml Labs Labs Laboratory Tests Test 01/05/20 10:50 01/05/20 16:45 Red Blood Count 3.67 x10^6/uL (3.50-5.70) Absolute Reticulocyte Count 0.036 x10^6/uL (0.020-0.120) Percent Reticulocyte Count 1.0 % (0.5-2.3) Immature Reticulocyte Fraction 0.65 (0.20-0.60) Iron Level 43 ug/dL (50-170) Total Iron Binding Capacity 223 ug/dL (250-450) Iron Saturation 19 % (15-34) Vitamin B12 Level 963 pg/mL (247-911) Micro Micro Microbiology 01/04/20 Blood Culture - Preliminary, Resulted NO GROWTH AFTER 1 DAY 01/04/20 Gram Stain Evaluation - Final, Resulted 01/04/20 Respiratory Culture, Resulted Pending Review of Systems Constitutional: yes: alert, oriented Ears/Nose/Throat: Yes: no symptom reported Eyes: Yes: no symptom reported Pulmonary: Yes no symptom reported Cardiovascular: Yes no symptom reported Gastrointestional: Yes: no symptom reported Genitourinary: Yes: no symptom reported Musculoskeletal: Yes: no symptom reported Skin: Yes no symptom reported Psychiatric/Neurological: Yes: no symptom reported Endocrine: Yes: no symptom reported Physical Exam General Appearance: no apparent distress Skin: warm Respiratory: bilateral CTA Heart: S1S2 Abdomen: soft, bowel sounds present Genitourinary: bladder flat Extremities: pulses present Neurology: alert Musculoskeletal: Weakness Assessment Assessment IMP DYSPNEA ESRD ANEMIA HTN HX PANCYTOPENIA R FOOT TOE FX PLAN HD TOMORROW COVID 19 NEG ELEUTERIO NEEDED HEME/ONC EVAL ORTHO EVAL WILL FOLLOW ALMA ELIZONDO MD Jan 06, 2020 10:35
[2020-01-06 11:00] VITALS: BP 90/61
--- NOTE | 2020-01-06 13:14 | EKG ---
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
[2020-01-06 15:14] LABS: KAPPA FREE 227.3 mg/L (3.3-19.4); KAPPA LAMBDA RATIO 0.93 (0.26-1.65); LAMBDA FREE 244.2 mg/L (5.7-26.3)
[2020-01-06 15:24] VITALS: BP 110/77
--- NOTE | 2020-01-06 16:18 | NUR ---
Transfer report given to TAYLOR Vergara by this RN. Pt transferred from room 650 to room 500 by wheelchair. Belongings sent with pt at time of transfer.
--- NOTE | 2020-01-06 17:17 | NUR ---
SW following. Reviewed chart and discussed with RN. Pt from home with spouse. Discharge plan remains home with spouse and HH. Pt will continue out-patient dialysis. MIGUEL notified Dr. Nix of request for orders x2. SW to continue following. Coordinated care with Serenity from [facility]. SW to continue following. Pt transferred to .
[2020-01-06 19:00] VITALS: BP 103/66
[2020-01-06] MEDS: FAMOTIDINE 20 MG TABLET. PO SCH (20:34)
[2020-01-06] MEDS: TEMAZEPAM 15 MG CAPSULE PO PRN (20:34)
[2020-01-06 22:30] VITALS: BP 82/53
[2020-01-07 02:37] VITALS: BP 97/58
[2020-01-07 07:15] VITALS: BP 101/71
[2020-01-07] MEDS: IPRATRPIUM/ALBUTEROL 0.5/2.5MG 3 ML NEBU. NEB SCH ×2 (07:39→15:21)
--- NOTE | 2020-01-07 07:50 | SNU/HH DC ---
DISCHARGE WITH HOME HEALTH DISCHARGE INFORMATION: Condition on Discharge: Stable CODE STATUS: Code Status: Full HOME HEALTH: Face to Face: I certify this patient is under my care and that I, or a nurse practitioner or physician's chemical laboratory assistant working with me, had a face to face encounter that meets the physician face to face encounter requirements with this patient on []. Medical Complications: Falls RN For Eval/Treatment: Yes Pt Meets Homebound Status: Unable to negotiate home POST DISCHARGE ORDERS: Activity Instructions for Disc: Resume previous activity DIET AFTER DISCHARGE: Renal CERTIFICATION STATEMENT: Certification Statement: Certification Statement: Based on the above finding, I certify that this patient is confined to the home and needs intermittent chcf care, physical therapy and/or speech therapy, or continues to need occupational therapy.~ This patient is under my care, and I have initiated the establishment of the plan of care.~ This patient will be followed by myself or a community physician who will periodically review the plan of care. Home Meds Reported Medications Cinacalcet Hcl (SENSIPAR) 30 Mg Tablet, 1 TAB PO DAILY for cinacalcet, #30 TAB 11 Refills 07/04/18 Sevelamer Carbonate (RENVELA) 800 Mg Tablet, 3 TAB PO TID for renagel, #810 TAB 3 Refills 07/04/18 Temazepam (TEMAZEPAM) 30 Mg Capsule, 30 MG PO PRN QHS 08/17/13 SHIRIN CHAN MD Jan 07, 2020 07:50
--- NOTE | 2020-01-07 07:52 | PDOC ---
Justicifation of Admission Dx: Justifications for Admission: Justification of Admission Dx: Yes Respiratory Failure: Severe Resp Distress SHIRIN CHAN MD Jan 07, 2020 07:52
--- NOTE | 2020-01-07 07:52 | PDOC ---
Justicifation of Admission Dx: Justifications for Admission: Justification of Admission Dx: Yes Respiratory Failure: Severe Resp Distress SHIRIN CHAN MD Jan 07, 2020 07:52
--- NOTE | 2020-01-07 07:54 | PDOC ---
Provider Note Provider Note [id number] Justicifation of Admission Dx: Justifications for Admission: Justification of Admission Dx: Yes Respiratory Failure: Severe Resp Distress SHIRIN CHAN MD Jan 07, 2020 07:54
[2020-01-07] MEDS: predniSONE 20 MG TABLET PO SCH (08:10)
[2020-01-07] MEDS: CINACALCET HCL 30 MG TABLET PO SCH (08:10)
[2020-01-07] MEDS: SEVELAMER CARBONATE 800 MG TABLET. PO SCH ×2 (08:11→11:40)
--- NOTE | 2020-01-07 08:18 | DS ---
DATE OF DISCHARGE: 01/07/2020 HOSPITAL SUMMARY: An 79-year-old white female admitted with cough and respiratory distress. Chest x-ray was surprisingly clear. CBC was abnormal with white count of 2900, platelets of 58,000. Chemistry studies were otherwise unremarkable. TSH and B12 were normal. COVID was negative and protein electrophoresis was unremarkable. Foot x-ray showed evidence of mildly angulated fractures of the distal second, third and fourth right metatarsals. She was treated with IV and oral Levaquin and IV and oral steroids and respiratory treatments and is feeling better in that regard. After she is seen by the optical mechanic apprentice for her foot fracture to arrange outpatient followup, she will be discharged and followed as an outpatient. She was seen by Hematology as well and discussion of outpatient followup and possible bone marrow given her pancytopenia was discussed as well. FINAL DIAGNOSES: 1. Acute bronchitis, improved. 2. Pancytopenia, etiology undetermined. 3. Multiple metatarsal fractures, right foot. OPERATIONS AND PROCEDURES: Oncology, Dr. Romano of Podiatry. COMPLICATIONS: None. CONSULTATIONS: Same. DISPOSITION: Five more days of Levaquin 250 mg every other day, prednisone 40 mg daily for 2 more days. Outpatient followup with optical mechanic apprentice to follow up on the x-rays and myself as needed. We will follow her CBCs serially and should her white count or platelet count gets much lower she will need bone marrow studies per Oncology. SHIRIN CHAN MD DR: KANDICE/zana JOB#: [id number] / [id number]
[2020-01-07] MEDS ORDERED: DIALYSIS PATIENT. MC PRN ×2 (08:30)
[2020-01-07] MEDS ORDERED: IV NORMAL SALINE 1000ML BAG 1,000 ML IV PRN ×2 (08:30)
[2020-01-07] MEDS ORDERED: ALBUMIN HUMAN 25% 200 ML IV PRN (08:30)
--- NOTE | 2020-01-07 11:35 | PDOC ---
Renal-Progress Notes Subjective Notes Notes FEELING BETTER History of Present Illness Hx of present illness STABLE Vitals Vitals Vital Signs Date Time Temp Pulse Resp B/P (MAP) Pulse Ox O2 Delivery O2 Flow Rate FiO2 01/07/20 07:40 98 Room Air 01/07/20 07:15 97.5 67 16 101/71 (81) 97.5 01/06/20 11:22 1.0 Weight Weight [ ] I.O. Intake and Output Intake and Output 01/07/20 07:00 Intake Total 780 ml Balance 780 ml Intake Oral 780 ml Micro Micro Microbiology 01/04/20 Blood Culture - Preliminary, Resulted NO GROWTH AFTER 2 DAYS 01/04/20 Gram Stain Evaluation - Final, Complete 01/04/20 Respiratory Culture - Final, Complete Review of Systems Constitutional: yes: alert, oriented Ears/Nose/Throat: Yes: no symptom reported Eyes: Yes: no symptom reported Pulmonary: Yes no symptom reported Cardiovascular: Yes no symptom reported Gastrointestional: Yes: no symptom reported Genitourinary: Yes: no symptom reported Musculoskeletal: Yes: no symptom reported Skin: Yes no symptom reported Psychiatric/Neurological: Yes: no symptom reported Endocrine: Yes: no symptom reported Physical Exam General Appearance: no apparent distress Skin: warm Respiratory: bilateral CTA Heart: S1S2 Abdomen: soft, bowel sounds present Genitourinary: bladder flat Extremities: pulses present Neurology: alert Musculoskeletal: Weakness Assessment Assessment IMP DYSPNEA ESRD-TTS ANEMIA HTN HX PANCYTOPENIA R FOOT TOE FX PLAN HD TODAY UF TO [facility] D/C TODAY OP F/U ALMA ELIZONDO MD Jan 07, 2020 11:35
--- NOTE | 2020-01-07 13:56 | PDOC2 ---
CONSULT Date of Consult Date of Consult DATE: 01/07/20 TIME: 13:01 Reason for Consult Reason for Consult: Metatarsal fractures, right foot Referring Physician Referring Physician: Dr. Nix Identification/Chief Complaint Chief Complaint Patient was consulted for injury with fracture of the metatarsals of the right foot. Source Source: Patient History of Present Illness Reason for Visit: Patient was seen this afternoon for fracture of the right foot. Patient reports that about 1 week ago as he was stepping out of her wheelchair, the toe went underneath and and her foot twisted. She reports that she has had pain and swelling in the foot since. She went to Urgent care where Xrays taken did not show any issues. Patient relates that she got Xrays when she got to the hospital and they saw the fracture. Patient relates that she is mostly in wheel chair and her help her at home. Past Medical History Cardiovascular: HTN GI: Other Heme/Onc: Anemia NOS Musculoskeletal: Weakness Renal/: Chronic renal failure, UTI Endocrine: Hyperparathyroidism Past Surgical History Past Surgical History: Cholecystectomy, Mastectomy, Tonsillectomy, Colon Resection Family History Family History: No Significant Social History ALCOHOL: none Drugs: None Lives: with Family Current Medications Current Medications Current Medications Levofloxacin/ Dextrose 100 ml @ 100 mls/hr 1X ONCE IV Last administered on 01/05/20 05:20; Start 01/04/20 at 17:15; Stop 01/04/20 at 18:14; Status DC Methylprednisolone Sodium Succinate (SOLU-Medrol 40MG VIAL) 40 mg Q12HR IV Last administered on 01/05/20at 21:31; Start 01/04/20 at 21:00; Stop 01/06/20 at 08:08; Status DC Cinacalcet (Sensipar) 30 mg DAILY PO Last administered on 01/07/20at 08:10; Start 01/05/20 at 09:00 Sevelamer Carbonate (Renvela) 2,400 mg TIDWMEALS PO Last administered on 01/07/20 08:11; Start 01/04/20 at 18:00 Temazepam (Restoril) 30 mg PRN QHS PRN PO INSOMNIA Last administered on 01/06/20at 20:34; Start 01/04/20 at 18:00 Albuterol Sulfate (Ventolin Hfa) 1 puff RTQID INH Last administered on 01/05/20at 21:31; Start 01/04/20 at 20:00; Stop 01/07/20 at 07:37; Status DC Benzonatate (Tessalon Perle) 200 mg TID PRN PRN PO COUGH Last administered on 01/05/20at 21:31; Start 01/04/20 at 19:15 Famotidine (Pepcid) 20 mg QHS PO Last administered on 01/06/20at 20:34; Start 01/05/20 at 21:00 Sodium Chloride 1,000 ml @ 1,000 mls/hr Q1H PRN IV hypotension; Start 01/05/20 at 09:15; Stop 01/05/20 at 15:14; Status DC Albumin Human 200 ml @ 200 mls/hr 1X PRN PRN IV Hypotension; Start 01/05/20 at 09:15; Stop 01/05/20 at 15:14; Status DC Sodium Chloride 1,000 ml @ 400 mls/hr Q2H30M PRN IV PATENCY; Start 01/05/20 at 09:15; Stop 01/05/20 at 21:14; Status DC Info (PHARMACY MONITORING -- do not chart) 1 each PRN DAILY PRN MC SEE COMMENTS; Start 01/05/20 at 09:15 Info (PHARMACY MONITORING -- do not chart) 1 each PRN DAILY PRN MC SEE COMMENTS; Start 01/05/20 at 09:15; Stop 01/05/20 at 15:53; Status DC Lidocaine HCl (Lidocaine 1% 20ml Vial) 20 ml 1X ONCE INJ Last administered on 01/05/20at 09:30; Start 01/05/20 at 09:30; Stop 01/05/20 at 09:51; Status DC Lidocaine HCl (Xylocaine-Mpf 1% 2ml Vial) 2 ml STK-MED ONCE .ROUTE ; Start 01/05/20 at 09:26; Stop 01/05/20 at 09:27; Status DC Diphenhydramine HCl (Benadryl) 25 mg 1X PRN PRN IV ITCHING Last administered on 01/05/20at 11:43; Start 01/05/20 at 11:45; Stop 01/06/20 at 11:44; Status DC Clonidine HCl (Catapres) 0.1 mg 1X PRN PRN PO SBP > 180 Last administered on 01/05/20at 11:47; Start 01/05/20 at 11:45; Stop 01/06/20 at 11:44; Status DC Acetaminophen (Tylenol) 500 mg 1X ONCE PO Last administered on 01/05/20at 12:30; Start 01/05/20 at 12:30; Stop 01/05/20 at 12:31; Status DC Ondansetron HCl (Zofran) 4 mg PRN Q8HRS PRN IVP NAUSEA/VOMITING Last administered on 01/05/20at 17:58; Start 01/05/20 at 18:00 Albuterol/ Ipratropium (Duoneb) 3 ml [id number] NEB Last administered on 01/07/20at 07:39; Start 01/06/20 at 09:00 Levofloxacin (Levaquin) 250 mg QODAY PO Last administered on 01/06/20at 09:33; Start 01/06/20 at 09:00 Prednisone (Prednisone) 40 mg DAILY PO Last administered on 01/07/20at 08:10; Start 01/06/20 at 09:00 Sodium Chloride 1,000 ml @ 1,000 mls/hr Q1H PRN IV hypotension; Start 01/07/20 at 08:30; Stop 01/07/20 at 14:29 Albumin Human 200 ml @ 200 mls/hr 1X PRN PRN IV Hypotension; Start 01/07/20 at 08:30; Stop 01/07/20 at 14:29 Sodium Chloride 1,000 ml @ 400 mls/hr Q2H30M PRN IV PATENCY; Start 01/07/20 at 08:30; Stop 01/07/20 at 20:29 Info (PHARMACY MONITORING -- do not chart) 1 each PRN DAILY PRN MC SEE C OMMENTS; Start 01/07/20 at 08:30; Status UNV Info (PHARMACY MONITORING -- do not chart) 1 each PRN DAILY PRN MC SEE COMMENTS; Start 01/07/20 at 08:30 Active Scripts Active Reported Sensipar (Cinacalcet Hcl) 30 Mg Tablet 1 Tab PO DAILY Renvela (Sevelamer Carbonate) 800 Mg Tablet 3 Tab PO TID Temazepam 30 Mg Capsule 30 Mg PO PRN QHS Allergies Allergies: Coded Allergies: No Known Drug Allergies (Unverified , 07/04/18) ROS Musculoskeletal: Yes Gait Disturbance, Yes Joint Pain, Yes Joint Stiffness, Yes Joint Swelling, Yes Muscular Weakness Skin: Yes Nail Changes Physical Exam General: Alert, Oriented X3, No acute distress Extremities: Other (Faintly palpable pedal pulses. + Edema noted to the right foot (especially the forefoot).) Skin: Other (No open lesions noted to the right foot. No erythema noted. No fluctuance noted. No eccymosis noted.) MUSCULOSKELETAL: Other (Mild POP at the metheads, right foot. Laterally deviated hallux, bilateral feet.) Vitals VITALS Vital Signs Date Time Temp Pulse Resp B/P (MAP) Pulse Ox O2 Delivery O2 Flow Rate FiO2 01/07/20 07:40 98 Room Air 01/07/20 07:15 97.5 67 16 101/71 (81) 97.5 01/06/20 11:22 1.0 Labs Labs Laboratory Tests Test 01/05/20 16:45 Iron Level 43 ug/dL (50-170) Total Iron Binding Capacity 223 ug/dL (250-450) Iron Saturation 19 % (15-34) Vitamin B12 Level 963 pg/mL (247-911) Thyroid Stimulating Hormone (TSH) 0.547 uIU/mL (0.358-3.74) Immunoglobulin [place]/Lambda Ratio 0.93 (0.26-1.65) Free [place] Light Chains 227.3 mg/L (3.3-19.4) Free Lambda Light Chains 244.2 mg/L (5.7-26.3) Images Images EXAM: AP and lateral views right foot DATE: 01/04/2020 7:12 PM INDICATION: Right foot pain COMPARISON: 09/21/2015 FINDINGS: Chronic/healed fracture deformity proximal phalanx right great toe. Hallux valgus. Angulation at the second-fourth metatarsal necks, new compared to 09/21/2015 suspicious for acute or subacute fractures. Forefoot soft tissue swelling is seen. Decreased bone mineral density. IMPRESSION: 1. Suspected acute or subacute fractures of the second-fourth metatarsal necks, new compared to 09/21/2015. 2. Chronic/healed fracture proximal phalanx great toe. Electronically signed by: Faustino Hernandez MD (01/04/2020 10:52 PM) [facility] Assessment/Plan Assessment/Plan Assessment: Fracture right foot 2nd, 3rd and 4th metatarsal necks. - Discussed with patient about the fracture. - Patient advised to be minimal weight bearing in a CAM Walker boot to the right LE. (CAM Walker boot dispensed today). Patient advised to use the wheel chair whenever possible. - Discussed in detail with patient that if she is feeling unstable in the CAM Boot or if it is causing issues with her knee / hip or any other issues, she is to use the surgical shoe that she has and to call the clinic. - Patient is to followup in clinic (With Dr. Garcia) in 1-2 weeks or call sooner if any issues. Dr. Cata Garcia, [place] [phone] CATA GARCIA DPM Jan 07, 2020 13:56
--- NOTE | 2020-01-07 14:15 | NUR ---
MIGUEL following. Reviewed chart and discussed with RN. Pt to discharge home today with spouse and . Pt to resume out-patient dialysis. MIGUEL called [facility] to inform them of the discharge. MIGUEL faxed discharge orders and clinicals to [facility], , (fax). Spoke with Serenity from [facility] and she has obtained discharge orders and clinicals. Luz Elena aware of dialysis schedule. No further MIGUEL needs at this time. Addendum: 01/07/20 at 1423 by ABBIE RIVERA pt on 1 l 02. Pt does not need 02 at discharge per RN. Pt on room air.
[2020-01-07 15:14] LABS: ALBUM 3.1 g/dL (2.9-4.4); ALPHA 1 0.3 g/dL (0.0-0.4); ALPHA 2 0.6 g/dL (0.4-1.0); BETA 1.2 g/dL (0.7-1.3); GAMMA 2.1 g/dL (0.4-1.8); PROTEIN TOTAL 7.2 g/dL (6.0-8.5); SPEP AG RATIO 0.8 (0.7-1.7)
--- NOTE | 2020-01-07 16:18 | NUR ---
Discharge Note: PT DISCHARGED HOME WITH [facility]. PT LEFT FACILITY VIA PRIVATE VEHICLE WITH AT 1350. PT STABLE AND ALERT UPON DISCHARGE. PT PIV REMOVED FROM L WRIST WITHOUT COMPLICATIONS, BANDAGE APPLIED. PT EDUCATED ABOUT DISCHARGE INSTRUCTIONS, DISCHARGE MEDICATIONS, AND FOLLOW-UP INSTRUCTIONS. PT VERY ADAMENT ABOUT DISCHARGE RIGHT NOW, PT REDIRECTED TO WAIT UNTIL ALL THINGS WERE CLEARED TO GO, PT GOT CAM BOOT FROM [facility] IN PLACE AND DR. GARCIA HAD SEEN BEFORE DISCHARGE. PT LEFT WITH ALL PERSONAL BELONGINGS. AIDEN ELIZABETH Discharge instructions and discharge home medications reviewed with Patient and a copy given. All questions have been answered and understanding verbalized.
[2020-01-07 19:11] LABS: ANA INTERP Positive (.)
== END 2020-01-07 13:50 | disposition home health service (06) | DRG 202 ==
LOC: 6 SOUTH 15:43 → 5 NORTH 01-06 16:25
PROVIDERS: ADMIT Family Medicine; ATTEND Family Medicine
PROC: 5A1D70Z Performance of Urinary Filtration, Intermittent, Less than 6 Hours Per Day (ICD-10-PCS; 2020-01-05)
PROC: 5A1D70Z Performance of Urinary Filtration, Intermittent, Less than 6 Hours Per Day (ICD-10-PCS; principal; 2020-01-07)
DX: J20.9 Acute bronchitis, unspecified (principal); N18.6 End stage renal disease; D61.818 Other pancytopenia; I12.0 Hypertensive chronic kidney disease with stage 5 chronic kidney disease or end stage renal disease; R06.03 Acute respiratory distress; S92.341A Displaced fracture of fourth metatarsal bone, right foot, initial encounter for closed fracture; S92.919A Unspecified fracture of unspecified toe(s), initial encounter for closed fracture; Z99.2 Dependence on renal dialysis; E21.3 Hyperparathyroidism, unspecified; Z20.828 Contact with and (suspected) exposure to other viral communicable diseases
CPT/HCPCS: 36415; 71045; 73620; 80053; 82607; 83520; 83540; 83550; 84165; 84443; 85025; 85045; 85610; 86038; 87040; 87070; 87205; 93005; 94640; 94760; J1200; J1956; J2405; J2920; J3490; J7512; 92610-GN; G0378; U0003-CS

== ENCOUNTER 2020-05-10 10:54 | Inpatient (IN) | payer MEDICARE, OTHER ==
[~2020-05-10] VITALS: Ht 160 cm; Wt 61.8 kg
[~2020-05-10 10:54] MED LIST changes: +ALPR0.5T6 PO; +LOPE2TAB27 PO
[2020-05-10 12:42] LABS: CALCIUM 8.7 mg/dL (8.5-10.1); CREATININE 9.1 mg/dL (0.6-1.0); POTASSIUM 4.8 mmol/L (3.5-5.1)
[2020-05-10 12:48] LABS: ALBUMIN 3.1 g/dL (3.4-5.0); ALBUMIN/GLOBULIN RATIO 0.7 (1.0-1.7); TOTAL BILIRUBIN 0.9 mg/dL (0.2-1.0); TOTAL PROTEIN 7.5 g/dL (6.4-8.2)
[2020-05-10 13:07] LABS: BASO % 0 % (0-3); EOS % 1 % (0-3); HEMATOCRIT 25.6 % (36.0-47.0); HEMOGLOBIN 7.8 g/dL (12.0-15.5); LYMPH % 33 % (24-48); MEAN CORPUSCULAR HEMOGLOBIN 29 pg (25-35); MEAN CORPUSCULAR HGB CONC 30 g/dL (31-37); MEAN CORPUSCULAR VOLUME 96 fL (79-100); MONO # 0.5 x10^3/uL (0.0-1.1); MONO % 15 % (0-9); NEUT # 1.6 x10^3/uL (1.8-7.7); NEUT % 50 % (31-73); PLATELET COUNT 58 x10^3/uL (140-400); RED BLOOD COUNT 2.67 x10^6/uL (3.50-5.40); RED CELL DISTRIBUTION WIDTH 18.1 % (11.5-14.5); WHITE BLOOD COUNT 3.1 x10^3/uL (4.0-11.0)
--- NOTE | 2020-05-10 13:39 | ED.ADGEN ---
Past Medical History Past Medical History: Cancer, Hypertension, Renal Disease, Renal Failure, Other Additional Past Medical Histor: COLON/BREAST CA, hemorroids,DIALYSIS, SUBDURAL HEMATOMA 04/15 Past Surgical History: Cancer Surgery, Pacemaker, Other Additional Past Surgical Histo: COLON SX,L MASTECTOMY,AICD Smoking Status: Unknown if ever smoked Alcohol Use: Occasionally Drug Use: None General Adult EDM: Chief Complaint: DIARRHEA HPI: HPI: Patient is a 79 year old AA female who presents emergency department with complaints of diarrhea for the last week. Patient reports that she has had diarrhea for over a month at this point. She was admitted at the beginning of April for the same problem. She denies any blood in her stools. The patient states that she is a chronic renal failure patient that dialyzes on Tuesdays, , and Saturdays. She missed dialysis today because the diarrhea was too bad. Patient denies any fever, cough, shortness of breath, chest pain, palpitations, headache, fatigue, body aches, nausea, vomiting, or abdominal pain. She currently denies any pain. Review of Systems: Review of Systems: Complete ROS is negative unless otherwise noted in HPI. Allergies: Allergies: Allergies Coded Allergies Type Severity Reaction Last Updated Verified No Known Drug Allergies 07/04/18 No Physical Exam: PE: See Above Constitutional: Well developed, well nourished, no acute distress, non-toxic appearance. [] HENT: Normocephalic, atraumatic, bilateral external ears normal, nose normal. [] Eyes: PERRLA, EOMI, conjunctiva normal, no discharge. [] Neck: Normal range of motion, no stridor. [] Cardiovascular:Heart rate regular rhythm Lungs & Thorax: Respirations even and unlabored, no retractions, no respiratory distress Abdomen: soft, no tenderness, no palpable mass Skin: Warm, dry, no erythema, no rash. [] Extremities: No cyanosis, ROM intact, no edema. [] Neurologic: Alert and oriented X 3, no focal deficits noted. [] Psychologic: Affect normal, judgement normal, mood normal. [] Current Patient Data: Labs: Laboratory Tests Test 05/10/20 12:15 White Blood Count 3.1 x10^3/uL (4.0-11.0) L Red Blood Count 2.67 x10^6/uL (3.50-5.40) L Hemoglobin 7.8 g/dL (12.0-15.5) L Hematocrit 25.6 % (36.0-47.0) L Mean Corpuscular Volume 96 fL (79-100) Mean Corpuscular Hemoglobin 29 pg (25-35) Mean Corpuscular Hemoglobin Concent 30 g/dL (31-37) L Red Cell Distribution Width 18.1 % (11.5-14.5) H Platelet Count 58 x10^3/uL (140-400) L Neutrophils (%) (Auto) 50 % (31-73) Lymphocytes (%) (Auto) 33 % (24-48) Monocytes (%) (Auto) 15 % (0-9) H Eosinophils (%) (Auto) 1 % (0-3) Basophils (%) (Auto) 0 % (0-3) Neutrophils # (Auto) 1.6 x10^3/uL (1.8-7.7) L Lymphocytes # (Auto) 1.0 x10^3/uL (1.0-4.8) Monocytes # (Auto) 0.5 x10^3/uL (0.0-1.1) Eosinophils # (Auto) 0.0 x10^3/uL (0.0-0.7) Basophils # (Auto) 0.0 x10^3/uL (0.0-0.2) Sodium Level 141 mmol/L (136-145) Potassium Level 4.8 mmol/L (3.5-5.1) Chloride Level 105 mmol/L (98-107) Carbon Dioxide Level 23 mmol/L (21-32) Anion Gap 13 (6-14) Blood Urea Nitrogen 62 mg/dL (7-20) H Creatinine 9.1 mg/dL (0.6-1.0) H Estimated GFR (Cockcroft-Gault) 5.0 BUN/Creatinine Ratio 7 (6-20) Glucose Level 88 mg/dL (70-99) Calcium Level 8.7 mg/dL (8.5-10.1) Magnesium Level 2.0 mg/dL (1.8-2.4) Total Bilirubin 0.9 mg/dL (0.2-1.0) Aspartate Amino Transferase (AST) 12 U/L (15-37) L Alanine Aminotransferase (ALT) 7 U/L (14-59) L Alkaline Phosphatase 93 U/L (46-116) Total Protein 7.5 g/dL (6.4-8.2) Albumin 3.1 g/dL (3.4-5.0) L Albumin/Globulin Ratio 0.7 (1.0-1.7) L Lipase 102 U/L (73-393) Laboratory Tests 05/10/20 12:15 Laboratory Tests 05/10/20 12:15 Vital Signs: Vital Signs Date Time Temp Pulse Resp B/P (MAP) Pulse Ox O2 Delivery O2 Flow Rate FiO2 05/10/20 13:30 54 20 93/55 (68) 99 Room Air 05/10/20 11:39 98.0 98.0 EKG: EKG: [] Heart Score: Risk Factors: Risk Factors: DM, Current or recent (<one month) smoker, HTN, HLP, family history of CAD, obesity. Risk Scores: Score 0 - 3: 2.5% MACE over next 6 weeks - Discharge Home Score 4 - 6: 20.3% MACE over next 6 weeks - Admit for Clinical Observation Score 7 - 10: 72.7% MACE over next 6 weeks - Early Invasive Strategies Radiology/Procedures: Radiology/Procedures: [] Course & Med Decision Making: Course & Med Decision Making Pertinent Labs and Imaging studies reviewed. (See chart for details) 1333-spoke with Dr. Rosado who is the admitting physician, and care was assumed following discussion of patient. Will admit patient for diarrhea, anemia, and chronic renal failure. I will consult GI and nephrology as requested. Patient's vital signs stable. Patient remains afebrile, appears nontoxic, respirations even and unlabored. Patient will be admitted to the medical telemetry floor. Patient's case and plan of care also discussed with Dr. Davis [] Boy Disclaimer: Boy Disclaimer: This electronic medical record was generated, in whole or in part, using a voice recognition dictation system. Departure Departure Impression: Primary Impression: Diarrhea Additional Impressions: Anemia Chronic renal failure Disposition: ADMITTED INPT THIS HOSP Admitting Physician: Nan Rosado Condition: STABLE Referrals: SHIRIN CHAN MD (PCP) Attending Signature Attending Signature I have reviewed the PA/SENIOR POLICY ASSOCIATE's note and plan of care. I was available for consultation as needed during the patient's visit in the emergency department. I agree with the clinical impression, plan, and disposition. Problem Qualifiers Primary Impression: Diarrhea Diarrhea type: unspecified type Qualified Codes: R19.7 - Diarrhea, unspecified Additional Impressions: Anemia Anemia type: unspecified type Qualified Codes: D64.9 - Anemia, unspecified Chronic renal failure Chronic kidney disease stage: unspecified stage Qualified Codes: N18.9 - Chronic kidney disease, unspecified CARLITOS MACARIO APRN May 10, 2020 13:39 MANDY DAVIS DO May 10, 2020 17:49
--- NOTE | 2020-05-10 15:15 | PDOC ---
Date of Service: DATE: 05/10/20 TIME: 14:51 Subjective: Subjective: Please see GI consult from 04/28/20 and following progress note from 04/29. At that time, she reported diarrhea (watery stools during the day and night) for a month. Diarrhea was not observed per staff during admission. Enteric panel was negative but C Diff was uncollected because she had a formed stool that could not be sent to lab. Trial of pancreatic enzymes were started - I do not believe she was discharged with this. Back to ER today and admitted again. C/o diarrhea "all day and night." Says "I got better but then I got worse." Mentions diarrhea at [facility]. Says she last dialyzed on . Later says she dialyzed on Saturday. Couldn't go to dialysis today due to diarrhea. First says it doesn't make a difference if she eats. Then says she's not eating because diarrhea will get worse. Indicates she is taking two "white pills" in the afternoon and overnight (?Imodium) Says whatever the cancer doctor recommended last time made her better. D/w nurse in ER - no stools here. Objective: Vital Signs: Vital Signs Date Time Temp Pulse Resp B/P (MAP) Pulse Ox O2 Delivery O2 Flow Rate FiO2 05/10/20 11:39 98.0 58 18 103/56 (72) 99 Room Air 98.0 Labs: Laboratory Tests Test 05/10/20 12:15 White Blood Count 3.1 x10^3/uL Red Blood Count 2.67 x10^6/uL Hemoglobin 7.8 g/dL Hematocrit 25.6 % Mean Corpuscular Volume 96 fL Mean Corpuscular Hemoglobin 29 pg Mean Corpuscular Hemoglobin Concent 30 g/dL Red Cell Distribution Width 18.1 % Platelet Count 58 x10^3/uL Neutrophils (%) (Auto) 50 % Lymphocytes (%) (Auto) 33 % Monocytes (%) (Auto) 15 % Eosinophils (%) (Auto) 1 % Basophils (%) (Auto) 0 % Neutrophils # (Auto) 1.6 x10^3/uL Lymphocytes # (Auto) 1.0 x10^3/uL Monocytes # (Auto) 0.5 x10^3/uL Eosinophils # (Auto) 0.0 x10^3/uL Basophils # (Auto) 0.0 x10^3/uL Sodium Level 141 mmol/L Potassium Level 4.8 mmol/L Chloride Level 105 mmol/L Carbon Dioxide Level 23 mmol/L Anion Gap 13 Blood Urea Nitrogen 62 mg/dL Creatinine 9.1 mg/dL Estimated GFR (Cockcroft-Gault) 5.0 BUN/Creatinine Ratio 7 Glucose Level 88 mg/dL Calcium Level 8.7 mg/dL Magnesium Level 2.0 mg/dL Total Bilirubin 0.9 mg/dL Aspartate Amino Transf (AST/SGOT) 12 U/L Alanine Aminotransferase (ALT/SGPT) 7 U/L Alkaline Phosphatase 93 U/L Total Protein 7.5 g/dL Albumin 3.1 g/dL Albumin/Globulin Ratio 0.7 Lipase 102 U/L PE: GEN: NAD LUNGS: CTAB HEART: RRR ABD: NABS, S/ND/NT NEURO/PSYCH: appropriate but seems forgetful A/P: Diarrhea Pancytopenia, mild coagulopathy, ESRD on HD H/o esophageal candidiasis H/o colon cancer s/p resection and chemo CRC screen - UTD (2018) S/p cholecystectomy -- Recurrent issues with diarrhea, seemingly worse outside the hospital. Restart pancreatic enzymes, check C Diff if possible for completeness, observe. Justicifation of Admission Dx: Justifications for Admission: Justification of Admission Dx: Yes Respiratory Failure: Severe Resp Distress REMIGIO HCRISTIE May 10, 2020 15:15
[2020-05-10 15:30] VITALS: BP 95/60
[2020-05-10] MEDS ORDERED: C.DIFF MED SCREEN BY RX. MC ONE (16:30)
[2020-05-10 19:00] VITALS: BP 112/70
[2020-05-10] MEDS ORDERED: ALBUTEROL SULFATE 2.5 MG/3 ML NEBU. NEB PRN (19:30)
[2020-05-10] MEDS ORDERED: LOPERAMIDE 2 MG CAPSULE PO PRN (19:30)
[2020-05-10] MEDS: ALPRAZolam 0.5 MG TABLET PO PRN (20:00)
[2020-05-10] MEDS: TEMAZEPAM 15 MG CAPSULE PO PRN (20:02)
[2020-05-10] MEDS: ACETAMINOPHEN 325 MG TABLET. PO PRN (22:31)
[2020-05-10 23:00] VITALS: BP 95/67
--- NOTE | 2020-05-11 01:00 | NUR ---
Notified Dr. Rosado about patient being hypotensive. BP 70-80's/50's. Patient asymptomatic, sleeping and able to easily wake. Patient has a history of hypotension (last admission 1 month ago BP's documented as low as 50's/30's.) No new orders given at this time, will continue to monitor patient.
--- NOTE | 2020-05-11 01:05 | NUR ---
Patient code status changed to DNR. Per patient request and as documented in previous admission, patients wishes are to DNR. Order given by Dr. Rosado and verified by 2 RNs. Nikko Sawyer RN & Belia Peterson RN
[2020-05-11 03:00] VITALS: BP 73/45
[2020-05-11 07:00] VITALS: BP 93/53
--- NOTE | 2020-05-11 07:51 | PDOC1 ---
H & P. DATE OF SERVICE: DATE: 05/11/20 TIME: 07:50 HPI: Mrs. Chavez is an 79-year-old female with past medical history of end-stage renal disease, dependence on dialysis, anemia of chronic disease, hypertension, anxiety, who presented to the emergency room yesterday for continued diarrhea. She has been admitted twice in the last 5 weeks for symptoms of diarrhea, however has had improvement of diarrhea per nursing during the admissions. She was most recently discharged on April 30 to [facility], however left there AMA shortly after getting there. She reports that her diarrhea is so significant that it is making her unable to go to dialysis. She was seen in the clinic on May 06 and had reported that the last day at that time that she had been to dialysis was on April 30. She was tested for C. difficile at that time which then came back negative. She was strongly encouraged to go to dialysis on May 07, and if she was unable to do this she was encouraged to come to the emergency room for admission and dialysis. She reports the stools are multiple times a day, watery, sometimes foul-smelling. At this time the etiology of her diarrhea is undetermined, as multiple work-ups for an infectious source have been negative. She also continues to have chronic pancytopenia with somewhat worsened hemoglobin as compared to her baseline. She was evaluated by heme-onc during last admission and was recommended for outpatient follow-up and to consider a bone marrow biopsy for evaluation. Her labs on admission were also remarkable for creatinine of 9.1 with an elevated BUN. Renal has been consulted to manage her dialysis. Her baseline creatinine appears to be closer to 5.5-6. ROS: Constitutional: Denies fever, fatigue, chills HEENT: Denies sore throat, vision changes Cardio: Denies chest pain, dyspnea with exertion, syncope, palpitations, edema Pulmonary: Denies shortness of breath, cough, wheezing GI: Admits diarrhea; denies nausea, vomiting, constipation : Denies dysuria, frequency, urgency, incontinence Skin: Denies new lesions Neuro: Denies weakness, paresthesias PMH: As above FAMILY HX: Noncontributory SOCIAL HX: Never smoker, no significant alcohol or drug use SURGICAL HX: Status post subtotal colectomy, cholecystectomy, left mastectomy MEDS: Reviewed and reconciled ALLERGIES: Reviewed PE: Alert, oriented, no acute distress EOMI, sclera non-icteric Neck supple RRR, no murmur Decreased breath sounds b/l, no wheezes or crackles Soft, NT, ND, normal bowel sounds, no rebound, guarding. 1-2+ edema in b/l LE,no cyanosis. Normal capillary refill. Calm, cooperative, mood/affect within normal limits ASSESSMENT & PLAN: Chronic diarrhea of uncertain etiology End-stage renal disease with dependence on dialysis Chronic pancytopenia Hypertension, currently hypotensive Anxiety Renal and GI have been consulted I am not sure if she has tried bile acid sequestrants for possible post cholecystectomy related diarrhea Currently trying Zenpep, could consider cholestyramine or colestipol if no improvement No concern for infectious source at this time given multiple negative work-ups Dialysis today Pt is DNR Justifications for Admission Other Justification TRUSTY,SURJIT Reeves MD May 11, 2020 07:51
[2020-05-11] MEDS: CINACALCET HCL 30 MG TABLET PO SCH (08:19)
[2020-05-11] MEDS: SEVELAMER CARBONATE 800 MG TABLET. PO SCH ×3 (08:19→17:29)
[2020-05-11] MEDS: ALPRAZolam 0.5 MG TABLET PO PRN ×2 (08:34→20:46)
--- NOTE | 2020-05-11 08:58 | PDOC ---
Date of Service: DATE: 05/11/20 TIME: 08:56 Subjective: Subjective: Reports diarrhea all over the bed that had to be cleaned up. Objective: Objective: D/w nurse/staff - small stool this morning. Vital Signs: Vital Signs Date Time Temp Pulse Resp B/P (MAP) Pulse Ox O2 Delivery O2 Flow Rate FiO2 05/11/20 03:00 97.8 59 18 73/45 (54) 97 Room Air 97.8 05/10/20 20:10 1.0 Labs: Laboratory Tests Test 05/10/20 12:15 White Blood Count 3.1 x10^3/uL Red Blood Count 2.67 x10^6/uL Hemoglobin 7.8 g/dL Hematocrit 25.6 % Mean Corpuscular Volume 96 fL Mean Corpuscular Hemoglobin 29 pg Mean Corpuscular Hemoglobin Concent 30 g/dL Red Cell Distribution Width 18.1 % Platelet Count 58 x10^3/uL Neutrophils (%) (Auto) 50 % Lymphocytes (%) (Auto) 33 % Monocytes (%) (Auto) 15 % Eosinophils (%) (Auto) 1 % Basophils (%) (Auto) 0 % Neutrophils # (Auto) 1.6 x10^3/uL Lymphocytes # (Auto) 1.0 x10^3/uL Monocytes # (Auto) 0.5 x10^3/uL Eosinophils # (Auto) 0.0 x10^3/uL Basophils # (Auto) 0.0 x10^3/uL Sodium Level 141 mmol/L Potassium Level 4.8 mmol/L Chloride Level 105 mmol/L Carbon Dioxide Level 23 mmol/L Anion Gap 13 Blood Urea Nitrogen 62 mg/dL Creatinine 9.1 mg/dL Estimated GFR (Cockcroft-Gault) 5.0 BUN/Creatinine Ratio 7 Glucose Level 88 mg/dL Calcium Level 8.7 mg/dL Magnesium Level 2.0 mg/dL Total Bilirubin 0.9 mg/dL Aspartate Amino Transf (AST/SGOT) 12 U/L Alanine Aminotransferase (ALT/SGPT) 7 U/L Alkaline Phosphatase 93 U/L Total Protein 7.5 g/dL Albumin 3.1 g/dL Albumin/Globulin Ratio 0.7 Lipase 102 U/L PE: GEN: NAD - up in chair, eating breakfast LUNGS: clear HEART: RRR ABD: soft, non-tender NEURO/PSYCH: calm, probably forgetful A/P: Diarrhea - varying history per pt and staff Pancytopenia, mild coagulopathy ESRD on HD -- Continue pancreatic enzymes, observe. Justicifation of Admission Dx: Justifications for Admission: Justification of Admission Dx: Yes Respiratory Failure: Severe Resp Distress REMIGIO CHRISTIE May 11, 2020 08:58 HUI AMBROSE MD May 11, 2020 09:40
[2020-05-11 09:16] LABS: HEMATOCRIT 27.9 % (36.0-47.0); HEMOGLOBIN 8.2 g/dL (12.0-15.5); RED BLOOD COUNT 2.8 x10^6/uL (3.50-5.40); RED CELL DISTRIBUTION WIDTH 19.1 % (11.5-14.5); WHITE BLOOD COUNT 4.2 x10^3/uL (4.0-11.0)
[2020-05-11 09:24] LABS: CALCIUM 8.8 mg/dL (8.5-10.1); CREATININE 9.7 mg/dL (0.6-1.0); GFR 4.7
[2020-05-11] MEDS ORDERED: IV NORMAL SALINE 1000ML BAG 1,000 ML IV PRN ×2 (10:30)
[2020-05-11] MEDS ORDERED: ALBUMIN HUMAN 25% 200 ML IV PRN (10:30)
[2020-05-11 11:00] VITALS: BP 114/61
--- NOTE | 2020-05-11 11:26 | PDOC2 ---
CONSULT Date of Consult Date of Consult DATE: 05/11/20 TIME: 11:26 Reason for Consult Reason for Consult: ESRD Identification/Chief Complaint Chief Complaint " I was having diarrhea, today Im feeling little better . Missed HD on Saturday and Saturday " Source Source: Chart review, Patient History of Present Illness Reason for Visit: Pt is an 79-year-old AA female with past medical history of end-stage renal disease who presented to the emergency room on 05/10 for continued diarrhea. She has been admitted twice in the last 5 weeks for symptoms of diarrhea, however has had improvement of diarrhea per nursing during the admissions. She was most recently discharged on April 30 to [facility], however left there AMA shortly after getting there. She reports that her diarrhea was so significant that was unable to go to dial ysis. She was seen in PCP clinic on May 06 and had reported that the last day at that time that she had been to dialysis was on April 30. She was tested for C. difficile at that time which then came back negative. She was strongly encouraged to go to dialysis on May 07, and if she was unable to do this she was encouraged to come to the emergency room for admission and dialysis. She reports the stools are multiple times a day, watery, sometimes foul-smelling. Denies fever, fatigue, chills . Denies sore throat .No chest pain, shortness of breath, cough .Denies nausea, vomiting Past Medical History Cardiovascular: CAD, HTN CENTRAL NERVOUS SYSTEM: Periperal neuropathy, Other GI: Other Heme/Onc: Cancer Musculoskeletal: Weakness Renal/: Chronic renal failure Endocrine: Hyperparathyroidism Past Surgical History Past Surgical History: Pacemaker, Mastectomy, Colon Resection Family History Family History: No Significant Social History ALCOHOL: none Drugs: None Lives: with Family Current Problem List Problem List Problems Medical Problems: (1) Anemia Status: Acute (2) Chronic renal failure Status: Acute (3) Diarrhea Status: Acute Current Medications Current Medications Current Medications Amylase/Lipase/ Protease (Zenpep 5,000) 2 cap TIDWMEALS PO Last administered on 05/11/20at 08:18; Start 05/10/20 at 17:00 Pharmacy Consult (C.diff Med Screen By Rx) 1 each 1X ONCE [facility] ; Start 05/10/20 at 16:30; Stop 05/10/20 at 16:34; Status DC Alprazolam (Xanax) 0.5 mg PRN BID PRN PO ANXIETY / AGITATION Last administered on 05/11/20 08:34; Start 05/10/20 at 19:15 Cinacalcet (Sensipar) 30 mg DAILY PO Last administered on 05/11/20 08:19; Start 05/11/20 at 09:00 Sevelamer Carbonate (Renvela) 2,400 mg TIDWMEALS PO Last administered on 05/11/20 08:19; Start 05/11/20 at 08:00 Temazepam (Restoril) 30 mg PRN QHS PRN PO INSOMNIA Last administered on 05/10/20 20:02; Start 05/10/20 at 19:15 Loperamide HCl (Imodium) 2 mg PRN Q6HRS PRN PO DIARRHEA Last administered on 05/10/20 20:00; Start 05/10/20 at 19:30 Albuterol Sulfate (Ventolin Neb Soln) 2.5 mg PRN Q2HR PRN NEB SHORTNESS OF BREATH Last administered on 05/10/20 20:07; Start 05/10/20 at 19:30 Acetaminophen (Tylenol) 650 mg PRN Q6HRS PRN PO MILD PAIN / TEMP > 100.3'F Last administered on 05/10/20at 22:31; Start 05/10/20 at 22:15 Active Scripts Active Reported Loperamide (Loperamide Hcl) 2 Mg Tablet 1 Tab PO Q6HRS PRN 30 Days Alprazolam 0.5 Mg Tablet 1 Tab PO BID Sensipar (Cinacalcet Hcl) 30 Mg Tablet 1 Tab PO DAILY Renvela (Sevelamer Carbonate) 800 Mg Tablet 3 Tab PO TID Temazepam 30 Mg Capsule 30 Mg PO PRN QHS Allergies Allergies: Coded Allergies: No Known Drug Allergies (Unverified , 07/04/18) ROS Review of System As per HPI, rest of the ROS is negative Physical Exam Physical Exam Gen Alert, oriented, no acute distress HEEN EOMI, sclera non-icteric, OM MOIST Neck supple CV RRR, no murmur Lungs Decreased breath sounds b/l bases , non labored Abd Soft, NT, ND, normal bowel sounds, no rebound, guarding. Ext 1+ edema in b/l LE,no cyanosis. Neuro AxO x 3 Psych mood/affect within normal limits No wright, No SP or CVA tenderness Vital Signs Vital Signs Date Time Temp Pulse Resp B/P (MAP) Pulse Ox O2 Delivery O2 Flow Rate FiO2 05/11/20 07:00 97.4 65 18 93/53 (66) 95 Room Air 97.4 05/10/20 20:10 1.0 Assessment & Plan ESRD - HD TTS , missed HD treatments Seen on Dialysis today, tolerating well, continue as ordered, Vitor Pillai Chronic diarrhea of uncertain etiology Chronic pancytopenia- seen by Hem/Onc during recent hospitalization, earlier this month. K and L elevated , ratio normal , could be sec to ESRD but still concerning Mention of BM Bx by Hem/onc Hypertension, currently hypotensive Strongly positive HERRERA , Homogenous pattern ++, SS -A/Ro elevated , complements abnormal anti-double stranded test negative. Recommend FU with Rheum Pt is DNR Labs Labs Laboratory Tests Test 05/10/20 12:15 05/11/20 08:30 White Blood Count 3.1 x10^3/uL (4.0-11.0) 4.2 x10^3/uL (4.0-11.0) Red Blood Count 2.67 x10^6/uL (3.50-5.40) 2.80 x10^6/uL (3.50-5.40) Hemoglobin 7.8 g/dL (12.0-15.5) 8.2 g/dL (12.0-15.5) Hematocrit 25.6 % (36.0-47.0) 27.9 % (36.0-47.0) Mean Corpuscular Volume 96 fL (79-100) 100 fL (79-100) Mean Corpuscular Hemoglobin 29 pg (25-35) 29 pg (25-35) Mean Corpuscular Hemoglobin Concent 30 g/dL (31-37) 30 g/dL (31-37) Red Cell Distribution Width 18.1 % (11.5-14.5) 19.1 % (11.5-14.5) Platelet Count 58 x10^3/uL (140-400) 46 x10^3/uL (140-400) Neutrophils (%) (Auto) 50 % (31-73) Lymphocytes (%) (Auto) 33 % (24-48) Monocytes (%) (Auto) 15 % (0-9) Eosinophils (%) (Auto) 1 % (0-3) Basophils (%) (Auto) 0 % (0-3) Neutrophils # (Auto) 1.6 x10^3/uL (1.8-7.7) Lymphocytes # (Auto) 1.0 x10^3/uL (1.0-4.8) Monocytes # (Auto) 0.5 x10^3/uL (0.0-1.1) Eosinophils # (Auto) 0.0 x10^3/uL (0.0-0.7) Basophils # (Auto) 0.0 x10^3/uL (0.0-0.2) Sodium Level 141 mmol/L (136-145) 139 mmol/L (136-145) Potassium Level 4.8 mmol/L (3.5-5.1) 5.0 mmol/L (3.5-5.1) Chloride Level 105 mmol/L (98-107) 104 mmol/L (98-107) Carbon Dioxide Level 23 mmol/L (21-32) 23 mmol/L (21-32) Anion Gap 13 (6-14) 12 (6-14) Blood Urea Nitrogen 62 mg/dL (7-20) 64 mg/dL (7-20) Creatinine 9.1 mg/dL (0.6-1.0) 9.7 mg/dL (0.6-1.0) Estimated GFR (Cockcroft-Gault) 5.0 4.7 BUN/Creatinine Ratio 7 (6-20) Glucose Level 88 mg/dL (70-99) 97 mg/dL (70-99) Calcium Level 8.7 mg/dL (8.5-10.1) 8.8 mg/dL (8.5-10.1) Magnesium Level 2.0 mg/dL (1.8-2.4) Total Bilirubin 0.9 mg/dL (0.2-1.0) Aspartate Amino Transf (AST/SGOT) 12 U/L (15-37) Alanine Aminotransferase (ALT/SGPT) 7 U/L (14-59) Alkaline Phosphatase 93 U/L (46-116) Total Protein 7.5 g/dL (6.4-8.2) Albumin 3.1 g/dL (3.4-5.0) Albumin/Globulin Ratio 0.7 (1.0-1.7) Lipase 102 U/L (73-393) Laboratory Tests Test 05/10/20 12:15 05/11/20 08:30 White Blood Count 3.1 x10^3/uL (4.0-11.0) 4.2 x10^3/uL (4.0-11.0) Red Blood Count 2.67 x10^6/uL (3.50-5.40) 2.80 x10^6/uL (3.50-5.40) Hemoglobin 7.8 g/dL (12.0-15.5) 8.2 g/dL (12.0-15.5) Hematocrit 25.6 % (36.0-47.0) 27.9 % (36.0-47.0) Mean Corpuscular Volume 96 fL (79-100) 100 fL (79-100) Mean Corpuscular Hemoglobin 29 pg (25-35) 29 pg (25-35) Mean Corpuscular Hemoglobin Concent 30 g/dL (31-37) 30 g/dL (31-37) Red Cell Distribution Width 18.1 % (11.5-14.5) 19.1 % (11.5-14.5) Platelet Count 58 x10^3/uL (140-400) 46 x10^3/uL (140-400) Neutrophils (%) (Auto) 50 % (31-73) Lymphocytes (%) (Auto) 33 % (24-48) Monocytes (%) (Auto) 15 % (0-9) Eosinophils (%) (Auto) 1 % (0-3) Basophils (%) (Auto) 0 % (0-3) Neutrophils # (Auto) 1.6 x10^3/uL (1.8-7.7) Lymphocytes # (Auto) 1.0 x10^3/uL (1.0-4.8) Monocytes # (Auto) 0.5 x10^3/uL (0.0-1.1) Eosinophils # (Auto) 0.0 x10^3/uL (0.0-0.7) Basophils # (Auto) 0.0 x10^3/uL (0.0-0.2) Sodium Level 141 mmol/L (136-145) 139 mmol/L (136-145) Potassium Level 4.8 mmol/L (3.5-5.1) 5.0 mmol/L (3.5-5.1) Chloride Level 105 mmol/L (98-107) 104 mmol/L (98-107) Carbon Dioxide Level 23 mmol/L (21-32) 23 mmol/L (21-32) Anion Gap 13 (6-14) 12 (6-14) Blood Urea Nitrogen 62 mg/dL (7-20) 64 mg/dL (7-20) Creatinine 9.1 mg/dL (0.6-1.0) 9.7 mg/dL (0.6-1.0) Estimated GFR (Cockcroft-Gault) 5.0 4.7 BUN/Creatinine Ratio 7 (6-20) Glucose Level 88 mg/dL (70-99) 97 mg/dL (70-99) Calcium Level 8.7 mg/dL (8.5-10.1) 8.8 mg/dL (8.5-10.1) Magnesium Level 2.0 mg/dL (1.8-2.4) Total Bilirubin 0.9 mg/dL (0.2-1.0) Aspartate Amino Transf (AST/SGOT) 12 U/L (15-37) Alanine Aminotransferase (ALT/SGPT) 7 U/L (14-59) Alkaline Phosphatase 93 U/L (46-116) Total Protein 7.5 g/dL (6.4-8.2) Albumin 3.1 g/dL (3.4-5.0) Albumin/Globulin Ratio 0.7 (1.0-1.7) Lipase 102 U/L (73-393) Review All relevant outside records, renal labs, imaging studies, telemetry/EKG's were reviewed. NIRAJ CHAHAL MD May 11, 2020 11:26
[2020-05-11] MEDS ORDERED: DIALYSIS PATIENT. MC PRN ×2 (12:15)
[2020-05-11] MEDS ORDERED: MIDODRINE 5 MG TABLET PO ONE (13:05)
[2020-05-11 15:00] VITALS: BP 102/66
--- NOTE | 2020-05-11 16:15 | NUR ---
SW following for discharge planning. Reviewed chart and discussed with RN. Pt from home with spouse. Attempted to meet with pt but she was off the floor so SW met with pt's spouse. Pt on room air and oral medications. Pt was at [facility] a week ago and left AMA per Lola at [facility]. Pt refusing SNU but spouse stating he can't care for pt in the home. SW requested PT/OT evaluation and COVID for possible placement. SW following.
[2020-05-11 19:00] VITALS: BP 117/71
[2020-05-11 23:00] VITALS: BP 90/57
[2020-05-12] MEDS: ACETAMINOPHEN 325 MG TABLET. PO PRN (02:21)
[2020-05-12 03:00] VITALS: BP 80/44
[2020-05-12 07:00] VITALS: BP 90/49
[2020-05-12] MEDS ORDERED: DIALYSIS PATIENT. MC PRN ×2 (07:45)
[2020-05-12] MEDS ORDERED: IV NORMAL SALINE 1000ML BAG 1,000 ML IV PRN ×2 (07:45)
--- NOTE | 2020-05-12 08:06 | PDOC ---
SUBJECTIVE Subjective 3 BMs yesterday per documentation. Pt hasn't had imodium since 05/10 at 1999. Had dialysis yesterday, will likely get again today. OBJECTIVE Objective Reviewed. Vital Signs Vital Signs Date Time Temp Pulse Resp B/P (MAP) Pulse Ox O2 Delivery O2 Flow Rate FiO2 05/12/20 03:00 64 18 80/44 (56) 90 Room Air 05/11/20 23:00 97.9 67 18 90/57 (68) 99 Room Air 97.9 05/11/20 20:00 Room Air 05/11/20 19:00 98.1 68 16 117/71 (86) 98 Room Air 98.1 05/11/20 15:00 97.2 78 18 102/66 (78) 99 Room Air 97.2 05/11/20 13:15 78/48 05/11/20 11:00 97.5 60 18 114/61 (78) 100 Room Air 97.5 I & O Intake and Output 05/12/20 06:59 Intake Total 750 ml Balance 750 ml Intake Oral 750 ml # Bowel Movements 3 PHYSICAL EXAM Physical Exam Alert, oriented, no acute distress EOMI, sclera non-icteric Neck supple RRR, no murmur Decreased breath sounds b/l, no wheezes or crackles Soft, NT, ND, normal bowel sounds, no rebound, guarding. 1+ edema in b/l LE,no cyanosis. Normal capillary refill. Calm, cooperative, mood/affect within normal limits ASSESSMENT/PLAN Assessment/Plan Chronic diarrhea of uncertain etiology End-stage renal disease with dependence on dialysis Chronic pancytopenia +HERRERA, +AntiRo Hypertension, currently hypotensive Anxiety Renal and GI following I am not sure if she has tried bile acid sequestrants for possible post cholecystectomy related diarrhea Currently trying Zenpep, could consider cholestyramine or colestipol if no improvement No concern for infectious source at this time given multiple negative work-ups Dialysis per Renal Rheum consult Pt is DNR COMMENT Lab Laboratory Tests Test 05/11/20 08:30 White Blood Count 4.2 x10^3/uL (4.0-11.0) Red Blood Count 2.80 x10^6/uL (3.50-5.40) Hemoglobin 8.2 g/dL (12.0-15.5) Hematocrit 27.9 % (36.0-47.0) Mean Corpuscular Volume 100 fL (79-100) Mean Corpuscular Hemoglobin 29 pg (25-35) Mean Corpuscular Hemoglobin Concent 30 g/dL (31-37) Red Cell Distribution Width 19.1 % (11.5-14.5) Platelet Count 46 x10^3/uL (140-400) Sodium Level 139 mmol/L (136-145) Potassium Level 5.0 mmol/L (3.5-5.1) Chloride Level 104 mmol/L (98-107) Carbon Dioxide Level 23 mmol/L (21-32) Anion Gap 12 (6-14) Blood Urea Nitrogen 64 mg/dL (7-20) Creatinine 9.7 mg/dL (0.6-1.0) Estimated GFR (Cockcroft-Gault) 4.7 Glucose Level 97 mg/dL (70-99) Calcium Level 8.8 mg/dL (8.5-10.1) Justifications for Admission Other Justification Nutrition Consultation Dietary Evaluation: Recommendations by RD: Dietary education by RD, Increase Calorie Intake, Protein supplementation Comments: offer Nepro oral nutrition supplements when po intake is < 50% Expected Outcomes/Goals: to meet >75% est nutr needs Malnutrition Findings: Body Fat Depletion (Non Severe: Mild Depletion Weight Status: Overweight SURJIT TENA MD May 12, 2020 08:06
[2020-05-12] MEDS: SEVELAMER CARBONATE 800 MG TABLET. PO SCH ×3 (08:37→18:00)
[2020-05-12] MEDS: CINACALCET HCL 30 MG TABLET PO SCH (08:37)
[2020-05-12] MEDS ORDERED: MIDODRINE 5 MG TABLET PO ONE (09:15)
[2020-05-12] MEDS ORDERED: ALBUMIN HUMAN 25% 200 ML IV ONE (09:15)
--- NOTE | 2020-05-12 09:54 | PDOC ---
Date of Service: DATE: 05/12/20 TIME: 09:51 Subjective: Subjective: 3 stools overnight. Eating okay. Objective: Objective: D/w nurse - ?two stools since admission, collected for C Diff. Reviewed primary note: I am not sure if she has tried bile acid sequestrants for possible post cholecystectomy related diarrhea. Currently trying Zenpep, could consider cholestyramine or colestipol if no improvement Vital Signs: Vital Signs Date Time Temp Pulse Resp B/P (MAP) Pulse Ox O2 Delivery O2 Flow Rate FiO2 05/12/20 09:48 64 86/48 05/12/20 07:00 97.5 18 93 Room Air 97.5 PE: GEN: NAD LUNGS: CTAB HEART: RRR ABD: NABS, S/ND/NT NEURO/PSYCH: A & O 3 A/P: Diarrhea Pancytopenia, +HERRERA ESRD on HD -- Still varying history. Continue PERT. Consideration also for cholestyramine, etc. per primary note. Also note plans for rheumatology opinion. Justicifation of Admission Dx: Justifications for Admission: Justification of Admission Dx: Yes Respiratory Failure: Severe Resp Distress REMIGIO CHRISTIE May 12, 2020 09:54
--- NOTE | 2020-05-12 12:20 | NUR ---
SW following for discharge planning. Reviewed chart and discussed with RN. Pt from home with spouse. SW met with pt today. Pt stated she does not want to go back to [facility] SNU but will consider other options. Pt stated her preference is home with HH but agreed to SW sending referrals. Pt stated no preference in provider. Patient choice of vendor form completed. Pt COVID pending. PT/OT to evaluate. Phoned and faxed referrals to [facility] (no beds until next week), [facility] (back on bed hold until next week), [facility] (bed hold), and [facility] (reviewing). SW following.
--- NOTE | 2020-05-12 13:57 | PDOC ---
DATE OF SERVICE DATE: 05/12/20 TIME: 13:55 SUBJECTIVE ROS seen on HD, no complaints OBJECTIVE Vital Signs Vital Signs Date Time Temp Pulse Resp B/P (MAP) Pulse Ox O2 Delivery O2 Flow Rate FiO2 05/12/20 09:48 64 86/48 05/12/20 08:05 Room Air 05/12/20 07:00 97.5 18 93 97.5 I & 0 Intake and Output 05/12/20 07:00 Intake Total 750 ml Balance 750 ml Intake Oral 750 ml # Bowel Movements 3 PHYSICAL EXAM Physical Exam Gen Alert, oriented, no acute distress HEEN EOMI, sclera non-icteric, OM MOIST Neck supple CV RRR, no murmur Lungs Decreased breath sounds b/l bases , non labored Abd Soft, NT, ND, normal bowel sounds, no rebound, guarding. Ext 1+ edema in b/l LE,no cyanosis. Neuro AxO x 3 Psych mood/affect within normal limits No wright, No SP or CVA tenderness DIAGNOSIS/ASSESSMENT Assessment & Plan ESRD - HD TTS , missed HD treatments Seen on Dialysis today, tolerating well, continue as ordered, Vitor Pillai Chronic diarrhea of uncertain etiology Chronic pancytopenia- seen by Hem/Onc during recent hospitalization, earlier this month. K and L elevated , ratio normal , could be sec to ESRD but still concerning Mention of BM Bx by Hem/onc Hypertension, currently hypotensive Strongly positive HERRERA , Homogenous pattern ++, SS -A/Ro elevated , complements abnormal anti-double stranded test negative. Recommend FU with Rheum Pt is DNR COMMENT/RELEVANT DATA Meds Current Medications Medications (Trade) Dose Ordered Sig/Kalpana Start Time Stop Time Status Last Admin Dose Admin Acetaminophen (Tylenol) 650 mg PRN Q6HRS PRN 05/10/20 22:15 05/12/20 02:21 650 MG Acetaminophen/ Hydrocodone Bitart (Lortab 5/325) 1 tab PRN Q6HRS PRN 05/12/20 08:45 Albumin Human 200 ml @ 200 mls/hr 1X ONCE 05/12/20 09:15 05/12/20 10:14 DC 05/12/20 09:49 200 MLS/HR Albuterol Sulfate (Ventolin Neb Soln) 2.5 mg PRN Q2HR PRN 05/10/20 19:30 05/10/20 20:07 2.5 MG Alprazolam (Xanax) 0.5 mg PRN BID PRN 05/10/20 19:15 05/11/20 20:46 0.5 MG Amylase/Lipase/ Protease (Zenpep 5,000) 2 cap TIDWMEALS 05/10/20 17:00 05/12/20 13:32 2 CAP Cinacalcet (Sensipar) 30 mg DAILY 05/11/20 09:00 05/12/20 08:37 30 MG Info (PHARMACY MONITORING -- do not chart) 1 each PRN DAILY PRN 05/12/20 07:45 Loperamide HCl (Imodium) 2 mg PRN Q6HRS PRN 05/10/20 19:30 05/10/20 20:00 2 MG Midodrine (Proamatine) 10 mg 1X ONCE 05/12/20 09:15 05/12/20 09:16 DC 05/12/20 09:48 10 MG Pharmacy Consult (C.diff Med Screen By Rx) 1 each 1X ONCE 05/10/20 16:30 05/10/20 16:34 DC Sevelamer Carbonate (Renvela) 2,400 mg TIDWMEALS 05/11/20 08:00 05/12/20 13:31 2,400 MG Sodium Chloride 1,000 ml @ 400 mls/hr Q2H30M PRN 05/12/20 07:45 05/12/20 19:44 Temazepam (Restoril) 30 mg PRN QHS PRN 05/10/20 19:15 05/10/20 20:02 30 MG Results All relevant outside records, renal labs, imaging studies, telemetry/EKG's were reviewed. Justicifation of Admission Dx: Justifications for Admission: Justification of Admission Dx: Yes Respiratory Failure: Severe Resp Distress NIRAJ CHAHAL MD May 12, 2020 13:56
[2020-05-12 14:13] VITALS: BP 102/52
[2020-05-12] MEDS: HYDROcodone/APAP 5/325MG 1 TAB TABLET PO PRN ×2 (15:11→20:54)
[2020-05-12 19:20] VITALS: BP 100/60
[2020-05-12] MEDS: TEMAZEPAM 15 MG CAPSULE PO PRN (20:53)
[2020-05-12] MEDS: GABAPENTIN 100 MG CAPSULE. PO SCH (20:54)
[2020-05-12 23:02] VITALS: BP 90/51
[2020-05-13 03:05] VITALS: BP 80/49
[2020-05-13 07:33] VITALS: BP 85/56
[2020-05-13] MEDS: CINACALCET HCL 30 MG TABLET PO SCH (08:15)
[2020-05-13] MEDS: SEVELAMER CARBONATE 800 MG TABLET. PO SCH ×3 (08:16→16:58)
--- NOTE | 2020-05-13 08:36 | PDOC ---
SUBJECTIVE Subjective 1 bm yesterday per documentation. Cdiff neg again. COVID neg again. Was having leg pain that sounded like neuropathy in the evenings, gabapentin 100mg QHS was very helpful last night. OBJECTIVE Objective Reviewed. Vital Signs Vital Signs Date Time Temp Pulse Resp B/P (MAP) Pulse Ox O2 Delivery O2 Flow Rate FiO2 05/13/20 07:33 97.5 70 18 85/56 (66) 90 Room Air 97.5 05/13/20 03:05 98.0 67 18 80/49 (59) 91 Room Air 98.0 05/12/20 23:02 97.9 74 18 90/51 (64) 96 Room Air 97.9 05/12/20 21:50 21 Room Air 05/12/20 20:54 17 Room Air 05/12/20 20:00 Room Air 05/12/20 19:20 98.5 75 22 100/60 (73) 99 Room Air 98.5 05/12/20 16:15 Room Air 05/12/20 15:11 Room Air 05/12/20 14:13 97.6 65 18 102/52 (69) 96 97.6 05/12/20 09:48 64 86/48 I & O Intake and Output 05/13/20 07:00 Intake Total 400 ml Output Total 0 ml Balance 400 ml Intake Oral 400 ml Output Urine Total 0 ml # Bowel Movements 1 PHYSICAL EXAM Physical Exam Alert, oriented, no acute distress EOMI, sclera non-icteric Neck supple RRR, no murmur Decreased breath sounds b/l, no wheezes or crackles Soft, NT, ND, normal bowel sounds, no rebound, guarding. 1+ edema in b/l LE,no cyanosis. Normal capillary refill. Calm, cooperative, mood/affect within normal limits ASSESSMENT/PLAN Assessment/Plan Chronic diarrhea of uncertain etiology End-stage renal disease with dependence on dialysis Chronic pancytopenia +HERRERA, +AntiRo, Dr. Pineda unavailable at this time, doesn't believe diarrhea is rheum related Hypertension, currently hypotensive Anxiety Renal and GI following I am not sure if she has tried bile acid sequestrants for possible post cholecystectomy related diarrhea Currently trying Zenpep, could consider cholestyramine or colestipol if no improvement No concern for infectious source at this time given multiple negative work-ups Dialysis per Renal Will call Dr. Pineda later today to discuss Pt is DNR Looking into options for SNU placement as pt's is unable to care for her at home. Justifications for Admission Other Justification Nutrition Consultation Dietary Evaluation: Recommendations by RD: Dietary education by RD, Increase Calorie Intake, Protein supplementation Comments: offer Nepro oral nutrition supplements when po intake is < 50% Expected Outcomes/Goals: to meet >75% est nutr needs Malnutrition Findings: Body Fat Depletion (Non Severe: Mild Depletion Weight Status: Overweight TRUSTSURJIT Ratliff MD May 13, 2020 08:36
--- NOTE | 2020-05-13 09:37 | PDOC ---
Date of Service: DATE: 05/13/20 TIME: 09:35 Objective: Objective: D/w nurse - stooled yesterday - no significant diarrhea. Vital Signs: Vital Signs Date Time Temp Pulse Resp B/P (MAP) Pulse Ox O2 Delivery O2 Flow Rate FiO2 05/13/20 08:53 97 Nasal Cannula 2.0 05/13/20 07:33 97.5 70 18 85/56 (66) 97.5 PE: GEN: NAD - getting breathing treatment, waves hello and smiles LUNGS: RT present for breathing treatment HEART: RRR ABD: soft, non-distended NEURO/PSYCH: A & O 3 A/P: Diarrhea - C Diff negative Pancytopenia, +HERRERA ESRD on HD COVID negative -- Continue PERT. Justicifation of Admission Dx: Justifications for Admission: Justification of Admission Dx: Yes Respiratory Failure: Severe Resp Distress REMIGIO CHRISTIE May 13, 2020 09:37
[2020-05-13 10:47] VITALS: BP 86/52
--- NOTE | 2020-05-13 11:43 | PDOC ---
DATE OF SERVICE DATE: 05/13/20 TIME: 11:41 SUBJECTIVE ROS stable OBJECTIVE Vital Signs Vital Signs Date Time Temp Pulse Resp B/P (MAP) Pulse Ox O2 Delivery O2 Flow Rate FiO2 05/13/20 10:47 97.7 58 18 86/52 (63) 98 Room Air 97.7 05/13/20 08:53 2.0 I & 0 Intake and Output 05/13/20 07:00 Intake Total 400 ml Output Total 0 ml Balance 400 ml Intake Oral 400 ml Output Urine Total 0 ml # Bowel Movements 1 PHYSICAL EXAM Physical Exam Gen Alert, oriented, no acute distress HEEN EOMI, sclera non-icteric, OM MOIST Neck supple CV RRR, no murmur Lungs Decreased breath sounds b/l bases , non labored Abd Soft, NT, ND, normal bowel sounds, no rebound, guarding. Ext 1+ edema in b/l LE,no cyanosis. Neuro AxO x 3 Psych mood/affect within normal limits No wright, No SP or CVA tenderness DIAGNOSIS/ASSESSMENT Assessment & Plan ESRD - HD TTS , missed HD treatments No indication for HD today Chronic diarrhea of uncertain etiology- CDiff negative Chronic pancytopenia- seen by Hem/Onc during recent hospitalization, earlier this month. K and L elevated , ratio normal , could be sec to ESRD but still concerning Mention of BM Bx by Hem/onc Hypertension, currently hypotensive Strongly positive HERRERA , Homogenous pattern ++, SS -A/Ro elevated , complements abnormal anti-double stranded test negative. Recommend FU with Rheum Pt is DNR COMMENT/RELEVANT DATA Meds Current Medications Medications (Trade) Dose Ordered Sig/Kalpana Start Time Stop Time Status Last Admin Dose Admin Acetaminophen (Tylenol) 650 mg PRN Q6HRS PRN 05/10/20 22:15 05/12/20 02:21 650 MG Acetaminophen/ Hydrocodone Bitart (Lortab 5/325) 1 tab PRN Q6HRS PRN 05/12/20 08:45 05/12/20 20:54 1 TAB Albumin Human 200 ml @ 200 mls/hr 1X ONCE 05/12/20 09:15 05/12/20 10:14 DC 05/12/20 09:49 200 MLS/HR Albuterol Sulfate (Ventolin Neb Soln) 2.5 mg PRN Q2HR PRN 05/10/20 19:30 05/10/20 20:07 2.5 MG Alprazolam (Xanax) 0.5 mg PRN BID PRN 05/10/20 19:15 05/11/20 20:46 0.5 MG Amylase/Lipase/ Protease (Zenpep 5,000) 2 cap TIDWMEALS 05/10/20 17:00 05/13/20 08:16 2 CAP Cinacalcet (Sensipar) 30 mg DAILY 05/11/20 09:00 05/13/20 08:15 30 MG Gabapentin (Neurontin) 100 mg QHS 05/12/20 21:00 05/12/20 20:54 100 MG Info (PHARMACY MONITORING -- do not chart) 1 each PRN DAILY PRN 05/12/20 07:45 Loperamide HCl (Imodium) 2 mg PRN Q6HRS PRN 05/10/20 19:30 05/10/20 20:00 2 MG Midodrine (Proamatine) 10 mg 1X ONCE 05/12/20 09:15 05/12/20 09:16 DC 05/12/20 09:48 10 MG Pharmacy Consult (C.diff Med Screen By Rx) 1 each 1X ONCE 05/10/20 16:30 05/10/20 16:34 DC Sevelamer Carbonate (Renvela) 2,400 mg TIDWMEALS 05/11/20 08:00 05/13/20 08:16 2,400 MG Sodium Chloride 1,000 ml @ 400 mls/hr Q2H30M PRN 05/12/20 07:45 05/12/20 19:44 DC Temazepam (Restoril) 30 mg PRN QHS PRN 05/10/20 19:15 05/12/20 20:53 30 MG Results All relevant outside records, renal labs, imaging studies, telemetry/EKG's were reviewed. Justicifation of Admission Dx: Justifications for Admission: Justification of Admission Dx: Yes Respiratory Failure: Severe Resp Distress NIRAJ CHAHAL MD May 13, 2020 11:43
--- NOTE | 2020-05-13 13:29 | NUR ---
RN NOTE this RN took over care of this patient and agrees with previous RN assessments. patient assisted to chair and oxygen placed on patient at 2L NC call light within reach
[2020-05-13 14:51] VITALS: BP 99/57
[2020-05-13 14:59] LABS: CALCIUM 8.4 mg/dL (8.5-10.1); CREATININE 4.6 mg/dL (0.6-1.0); GFR 11.1; MAGNESIUM 2.1 mg/dL (1.8-2.4); POTASSIUM 4.1 mmol/L (3.5-5.1)
--- NOTE | 2020-05-13 16:11 | NUR ---
SW following for discharge planning. Reviewed chart and discussed with RN. COVID result came back negative. SW met with pt and spouse today and they are agreeable to SW continuing to attempt to find SNU on discharge. Pt continues to declined preference in provider. Pt denied at [facility] (at dialysis limit) and [facility]. Pt is being considered at [facility]. SW also faxed referral to [facility]. MIGUEL will follow up with [facility], and [facility] next week to see if there are changes in bed availability. SW following.
[2020-05-13] MEDS: BENZONATATE 100 MG CAPSULE. PO PRN (16:58)
[2020-05-13 19:00] VITALS: BP 97/64
[2020-05-13] MEDS: GABAPENTIN 100 MG CAPSULE. PO SCH (20:33)
[2020-05-13] MEDS: HYDROcodone/APAP 5/325MG 1 TAB TABLET PO PRN (20:38)
[2020-05-13 23:49] VITALS: BP 100/59
[2020-05-14 03:00] VITALS: BP 75/43
[2020-05-14 07:00] VITALS: BP 90/60
[2020-05-14 07:43] LABS: CALCIUM 8.1 mg/dL (8.5-10.1); CREATININE 5.2 mg/dL (0.6-1.0); GFR 9.6; POTASSIUM 4.2 mmol/L (3.5-5.1)
[2020-05-14] MEDS: SEVELAMER CARBONATE 800 MG TABLET. PO SCH ×3 (08:00→17:00)
[2020-05-14] MEDS ORDERED: DIALYSIS PATIENT. MC PRN ×2 (09:45)
--- NOTE | 2020-05-14 12:27 | PDOC ---
PROGRESS NOTES Date of Service DATE: 05/14/20 TIME: 12:26 Subjective Subjective SEEN IN FOLLOW UP OF ESRD Objective Objective Vital Signs Date Time Temp Pulse Resp B/P (MAP) Pulse Ox O2 Delivery O2 Flow Rate FiO2 05/14/20 07:00 97.7 79 20 90/60 (70) 93 Room Air 97.7 05/13/20 21:38 2.0 Intake and Output 05/14/20 07:00 Intake Total 1540 ml Output Total 0 ml Balance 1540 ml Intake Oral 1540 ml Output Urine Total 0 ml # Voids 1 Physical Exam Abdomen: Normal bowel sounds, Soft, No tenderness, No hepatosplenomegaly, No masses Heart: Regular rate, Normal S1, Normal S2, No murmurs, Gallops Extremities: No clubbing, No cyanosis, No edema, Normal pulses, No tenderness/swelling General: Alert, Oriented X3, Cooperative, No acute distress Lungs: Clear to auscultation, Normal air movement Psych/Mental Status: Mental status NL, Mood NL Diagnosis RENAL FAILURE: ESRD Assessment Assessment Problems Medical Problems: (1) Anemia Status: Acute (2) Chronic renal failure Status: Acute (3) Diarrhea Status: Acute Plan Plan of Care EVALUATED DURING DILAYSIS AND TOLERATING WELL Comment Review of Relevant I have reviewed the following items gennaro (where applicable) has been applied. Labs Laboratory Tests Test 05/13/20 14:25 05/14/20 06:50 Sodium Level 140 mmol/L (136-145) 138 mmol/L (136-145) Potassium Level 4.1 mmol/L (3.5-5.1) 4.2 mmol/L (3.5-5.1) Chloride Level 100 mmol/L (98-107) 101 mmol/L (98-107) Carbon Dioxide Level 31 mmol/L (21-32) 25 mmol/L (21-32) Anion Gap 9 (6-14) 12 (6-14) Blood Urea Nitrogen 18 mg/dL (7-20) 21 mg/dL (7-20) Creatinine 4.6 mg/dL (0.6-1.0) 5.2 mg/dL (0.6-1.0) Estimated GFR (Cockcroft-Gault) 11.1 9.6 Glucose Level 100 mg/dL (70-99) 70 mg/dL (70-99) Calcium Level 8.4 mg/dL (8.5-10.1) 8.1 mg/dL (8.5-10.1) Magnesium Level 2.1 mg/dL (1.8-2.4) Laboratory Tests Test 05/13/20 14:25 05/14/20 06:50 Sodium Level 140 mmol/L (136-145) 138 mmol/L (136-145) Potassium Level 4.1 mmol/L (3.5-5.1) 4.2 mmol/L (3.5-5.1) Chloride Level 100 mmol/L (98-107) 101 mmol/L (98-107) Carbon Dioxide Level 31 mmol/L (21-32) 25 mmol/L (21-32) Anion Gap 9 (6-14) 12 (6-14) Blood Urea Nitrogen 18 mg/dL (7-20) 21 mg/dL (7-20) Creatinine 4.6 mg/dL (0.6-1.0) 5.2 mg/dL (0.6-1.0) Estimated GFR (Cockcroft-Gault) 11.1 9.6 Glucose Level 100 mg/dL (70-99) 70 mg/dL (70-99) Calcium Level 8.4 mg/dL (8.5-10.1) 8.1 mg/dL (8.5-10.1) Magnesium Level 2.1 mg/dL (1.8-2.4) Medications Current Medications Amylase/Lipase/ Protease (Zenpep 5,000) 2 cap TIDWMEALS PO Last administered on 05/13/20at 16:58; Start 05/10/20 at 17:00 Pharmacy Consult (C.diff Med Screen By Rx) 1 each 1X ONCE MC ; Start 05/10/20 at 16:30; Stop 05/10/20 at 16:34; Status DC Alprazolam (Xanax) 0.5 mg PRN BID PRN PO ANXIETY / AGITATION Last administered on 05/11/20at 20:46; Start 05/10/20 at 19:15 Cinacalcet (Sensipar) 30 mg DAILY PO Last administered on 05/13/20at 08:15; Start 05/11/20 at 09:00 Sevelamer Carbonate (Renvela) 2,400 mg TIDWMEALS PO Last administered on 05/13/20at 16:58; Start 05/11/20 at 08:00 Temazepam (Restoril) 30 mg PRN QHS PRN PO INSOMNIA Last administered on 05/12/20at 20:53; Start 05/10/20 at 19:15 Loperamide HCl (Imodium) 2 mg PRN Q6HRS PRN PO DIARRHEA Last administered on 05/10/20at 20:00; Start 05/10/20 at 19:30 Albuterol Sulfate (Ventolin Neb Soln) 2.5 mg PRN Q2HR PRN NEB SHORTNESS OF ARON ATH Last administered on 05/10/20at 20:07; Start 05/10/20 at 19:30 Acetaminophen (Tylenol) 650 mg PRN Q6HRS PRN PO MILD PAIN / TEMP > 100.3'F Last administered on 05/12/20at 02:21; Start 05/10/20 at 22:15 Sodium Chloride 1,000 ml @ 1,000 mls/hr Q1H PRN IV hypotension; Start 05/11/20 at 10:30; Stop 05/11/20 at 16:29; Status DC Albumin Human 200 ml @ 200 mls/hr 1X PRN PRN IV Hypotension Last administered on 05/11/20at 12:34; Start 05/11/20 at 10:30; Stop 05/11/20 at 16:29; Status DC Sodium Chloride 1,000 ml @ 400 mls/hr Q2H30M PRN IV PATENCY; Start 05/11/20 at 10:30; Stop 05/11/20 at 22:29; Status DC Info (PHARMACY MONITORING -- do not chart) 1 each PRN DAILY PRN MC SEE COMMENTS; Start 05/11/20 at 12:15; Status Cancel Info (PHARMACY MONITORING -- do not chart) 1 each PRN DAILY PRN MC SEE COMMENTS; Start 05/11/20 at 12:15; Status UNV Midodrine (Proamatine) 5 mg 1X ONCE PO Last administered on 05/11/20at 13:15; Start 05/11/20 at 13:05; Stop 05/11/20 at 13:07; Status DC Sodium Chloride 1,000 ml @ 1,000 mls/hr Q1H PRN IV hypotension; Start 05/12/20 at 07:45; Stop 05/12/20 at 13:44; Status DC Sodium Chloride 1,000 ml @ 400 mls/hr Q2H30M PRN IV PATENCY; Start 05/12/20 at 07:45; Stop 05/12/20 at 19:44; Status DC Info (PHARMACY MONITORING -- do not chart) 1 each PRN DAILY PRN MC SEE COMMENTS; Start 05/12/20 at 07:45; Status Cancel Info (PHARMACY MONITORING -- do not chart) 1 each PRN DAILY PRN MC SEE COMMENTS; Start 05/12/20 at 07:45; Stop 05/14/20 at 09:51; Status DC Acetaminophen/ Hydrocodone Bitart (Lortab 5/325) 1 tab PRN Q6HRS PRN PO SEVERE PAIN Last administered on 05/13/20at 20:38; Start 05/12/20 at 08:45 Midodrine (Proamatine) 10 mg 1X ONCE PO Last administered on 05/12/20at 09:48; Start 05/12/20 at 09:15; Stop 05/12/20 at 09:16; Status DC Albumin Human 200 ml @ 200 mls/hr 1X ONCE IV Last administered on 05/12/20at 09:49; Start 05/12/20 at 09:15; Stop 05/12/20 at 10:14; Status DC Gabapentin (Neurontin) 100 mg QHS PO Last administered on 05/13/20at 20:33; Start 05/12/20 at 21:00 Benzonatate (Tessalon Perle) 100 mg PRN Q6HRS PRN PO COUGH Last administered on 05/13/20at 16:58; Start 05/13/20 at 16:45 Info (PHARMACY MONITORING -- do not chart) 1 each PRN DAILY PRN MC SEE COMMENTS; Start 05/14/20 at 09:45 Info (PHARMACY MONITORING -- do not chart) 1 each PRN DAILY PRN MC SEE COMMENTS; Start 05/14/20 at 09:45; Stop 05/14/20 at 09:51; Status DC Active Scripts Active Reported Loperamide (Loperamide Hcl) 2 Mg Tablet 1 Tab PO Q6HRS PRN 30 Days Alprazolam 0.5 Mg Tablet 1 Tab PO BID Sensipar (Cinacalcet Hcl) 30 Mg Tablet 1 Tab PO DAILY Renvela (Sevelamer Carbonate) 800 Mg Tablet 3 Tab PO TID Temazepam 30 Mg Capsule 30 Mg PO PRN QHS Vitals/I & O Vital Sign - Last 24 Hours 05/13/20 05/13/20 05/13/20 05/13/20 14:51 19:00 20:00 20:38 Temp 98.1 99.0 98.1 99.0 Pulse 74 70 Resp 18 18 B/P (MAP) 99/57 (71) 97/64 (75) Pulse Ox 99 96 99 O2 Delivery Room Air Room Air Room Air Room Air 05/13/20 05/13/20 05/14/20 05/14/20 21:38 23:49 03:00 07:00 Temp 98.8 98.6 97.7 98.8 98.6 97.7 Pulse 68 73 79 Resp 18 20 B/P (MAP) 100/59 (73) 75/43 (54) 90/60 (70) Pulse Ox 99 98 97 93 O2 Delivery Nasal Cannula Room Air Room Air Room Air O2 Flow Rate 2.0 Intake and Output 05/13/20 05/13/20 05/14/20 15:00 23:00 07:00 Intake Total 200 ml 900 ml 440 ml Output Total 0 ml Balance 200 ml 900 ml 440 ml Justifications for Admission Other Justification Nutrition Consultation Dietary Evaluation: Recommendations by RD: Dietary education by RD, Increase Calorie Intake, Protein supplementation Comments: offer Nepro oral nutrition supplements when po intake is < 50% Expected Outcomes/Goals: to meet >75% est nutr needs Malnutrition Findings: Body Fat Depletion (Non Severe: Mild Depletion Weight Status: Overweight MANDY ORDONEZ MD May 14, 2020 12:27
[2020-05-14] MEDS: CINACALCET HCL 30 MG TABLET PO SCH (14:31)
--- NOTE | 2020-05-14 14:48 | PN ---
DATE: 05/14/2020 LOCATION: Room 536. SUBJECTIVE: This 79-year-old female I am seeing while currently on dialysis. Her major complaint at this point in time is postnasal drainage in her throat and would like something for the same. Per nursing, the diarrhea has slowed somewhat and she has been C. diff negative and was COVID negative. PHYSICAL EXAMINATION: GENERAL: She is well-developed, well-nourished, no acute distress. NECK: Supple, without adenopathy or thyromegaly. CHEST: Reveals decreased breath sounds, slightly bilaterally, but clear. HEART: Regular rate and rhythm. ABDOMEN: Benign. EXTREMITIES: With 1+ edema. NEUROLOGIC: She is intact. IMPRESSION: 1. Chronic diarrhea of uncertain etiology. 2. End-stage renal disease. 3. Chronic pancytopenia with positive rheumatological testing, HERRERA still to be sorted out. 4. Anxiety, \5. Hypertension. PLAN: Continue present supportive care, help of consultants appreciated. RODNEY LEMOS MD DR: SEBASTIAN/zana JOB#: [id number] / [id number]
[2020-05-14 15:00] VITALS: BP 93/61
[2020-05-14] MEDS: guaiFENesin DM 600/30MG 1 TAB TAB.ER.12H PO SCH ×2 (16:43→19:53)
[2020-05-14 19:00] VITALS: BP 90/52
[2020-05-14] MEDS: HYDROcodone/APAP 5/325MG 1 TAB TABLET PO PRN (19:53)
[2020-05-14] MEDS: BENZONATATE 100 MG CAPSULE. PO PRN (19:53)
[2020-05-14] MEDS: GABAPENTIN 100 MG CAPSULE. PO SCH (19:53)
[2020-05-14] MEDS: TEMAZEPAM 15 MG CAPSULE PO PRN (19:54)
[2020-05-14 23:00] VITALS: BP 83/53
[2020-05-15 03:03] VITALS: BP 85/52
[2020-05-15 07:59] VITALS: BP 111/63
[2020-05-15] MEDS: guaiFENesin DM 600/30MG 1 TAB TAB.ER.12H PO SCH ×2 (08:19→21:34)
[2020-05-15] MEDS: SEVELAMER CARBONATE 800 MG TABLET. PO SCH ×3 (08:20→17:57)
[2020-05-15 11:59] VITALS: BP 96/60
--- NOTE | 2020-05-15 13:31 | PN ---
DATE: 05/15/2020 LOCATION: Room 536. SUBJECTIVE: This 79-year-old female, currently voices no significant complaints. She said she is afraid to say, but has not had any diarrhea in the last day or so and actually her having more of normal bowel movements. She feels her postnasal drainage in her throat has improved with addition of the Mucinex. PHYSICAL EXAMINATION: GENERAL: She is well-developed, well-nourished, in no acute distress. CHEST: Reveals slightly decreased breath sounds. HEART: Regular rate and rhythm. ABDOMEN: Benign. EXTREMITIES: 1+ edema. NEUROLOGIC: She is intact. LABORATORY DATA: There is no new lab work today. IMPRESSION: 1. Chronic diarrhea of uncertain etiology, currently improved. 2. End-stage renal disease. 3. Chronic pancytopenia. 4. Possible lupus. 5. Anxiety. 6. Hypertension. PLAN: Continue present care. Would anticipate likely discharge tomorrow if she continues to do well. RODNEY LEMOS MD DR: SEBASTIAN/zana JOB#: [id number] / [id number]
[2020-05-15 15:59] VITALS: BP 84/54
[2020-05-15 19:00] VITALS: BP 88/55
[2020-05-15] MEDS: BENZONATATE 100 MG CAPSULE. PO PRN (21:33)
[2020-05-15] MEDS: TEMAZEPAM 15 MG CAPSULE PO PRN (21:33)
[2020-05-15] MEDS: ALPRAZolam 0.5 MG TABLET PO PRN (21:33)
[2020-05-15] MEDS: HYDROcodone/APAP 5/325MG 1 TAB TABLET PO PRN (21:34)
[2020-05-15] MEDS: GABAPENTIN 100 MG CAPSULE. PO SCH (21:34)
[2020-05-15 23:03] VITALS: BP 80/49
[2020-05-16 03:06] VITALS: BP 85/43
[2020-05-16 07:00] VITALS: BP 90/56
--- NOTE | 2020-05-16 07:57 | PDOC ---
Provider Note Date of Service: DATE: 05/16/20 TIME: 07:56 Provider Note vss, renal labs better , pancyto same- c diff as diarrhea cause neg, awaiting placement re snu Justifications for Admission Other Justification SHIRIN CHAN MD May 16, 2020 07:57
[2020-05-16] MEDS: guaiFENesin DM 600/30MG 1 TAB TAB.ER.12H PO SCH ×2 (08:04→19:53)
[2020-05-16] MEDS: SEVELAMER CARBONATE 800 MG TABLET. PO SCH ×3 (08:04→17:00)
[2020-05-16] MEDS: CINACALCET HCL 30 MG TABLET PO SCH (08:06)
--- NOTE | 2020-05-16 10:04 | PDOC ---
Date of Service: DATE: 05/16/20 TIME: 10:01 Subjective: Subjective: Says diarrhea is better. Objective: Objective: Reviewed chart - awaiting SNU? 1 stool charted today. Vital Signs: Vital Signs Date Time Temp Pulse Resp B/P (MAP) Pulse Ox O2 Delivery O2 Flow Rate FiO2 05/16/20 07:47 Nasal Cannula 2.0 05/16/20 03:06 98.3 69 18 85/43 (57) 92 98.3 PE: GEN: NAD - was asleep sitting up in bed LUNGS: diminished, NC 2L HEART: RRR ABD: S/ND/NT NEURO/PSYCH: probably forgetful but pleasant A/P: Diarrhea - better Pancytopenia, +HERRERA, ESRD on HD COVID and C Diff negative 05/11 -- DC per primary on PERT. Justicifation of Admission Dx: Justifications for Admission: Justification of Admission Dx: Yes Respiratory Failure: Severe Resp Distress REMIGIO CHRISTIE May 16, 2020 10:04
--- NOTE | 2020-05-16 10:55 | NUR ---
MIGUEL following for discharge planning. Reviewed chart and discussed with RN. MIGUEL working on SNU to LTC placement for this pt. Pt denied at [facility] but is being considered at [facility]. MIGUEL spoke with Sofi at [facility] and they are still considering patient. LVM for admissions with [facility] to check on status of referral. [facility] is full and [facility] remains on an admissions hold. MIGUEL faxed additional referrals to [facility] as well as [facility]. MIGUEL following. Addendum: 05/16/20 at 1655 by ABBIE RIVERA Pt accepted for SNU to LTC at [facility] tomorrow, 05/17 after dialysis. Transportation arranged for 1400 by Sofi at the facility.RN and Dr. Gibson notified. Pt and pt's spouse notified and are agreeable. MIGUEL provided contact information for [facility] to pt's spouse.
[2020-05-16 11:00] VITALS: BP 93/61
--- NOTE | 2020-05-16 13:51 | PDOC ---
Renal-Progress Notes Subjective Notes Notes NO NEW COMPLAINTS History of Present Illness Hx of present illness STABLE Vitals Vitals Vital Signs Date Time Temp Pulse Resp B/P (MAP) Pulse Ox O2 Delivery O2 Flow Rate FiO2 05/16/20 11:00 97.7 59 16 93/61 (72) 98 Room Air 97.7 05/16/20 07:47 2.0 Weight Weight [ ] I.O. Intake and Output Intake and Output 05/16/20 07:00 Intake Total 220 ml Output Total 0 ml Balance 220 ml Intake Oral 220 ml Output Urine Total 0 ml # Bowel Movements 1 Review of Systems Constitutional: yes: alert, oriented Ears/Nose/Throat: Yes: no symptom reported Eyes: Yes: no symptom reported Pulmonary: Yes no symptom reported Cardiovascular: Yes no symptom reported Gastrointestional: Yes: diarrhea Genitourinary: Yes: no symptom reported Musculoskeletal: Yes: muscle stiffness, muscle atrophy Skin: Yes no symptom reported Psychiatric/Neurological: Yes: no symptom reported Endocrine: Yes: no symptom reported Physical Exam General Appearance: no apparent distress Skin: warm Respiratory: decreased breath sounds Heart: S1S2 Abdomen: soft Genitourinary: bladder flat Extremities: pulses present Neurology: alert Musculoskeletal: Weakness Assessment Assessment IMP ESRD ANEMIA DIARRHEA PANCYTOPENIA DEPRESSION PLAN ELEUTERIO NEEDED HD TOMORROW SUPPORTIVE CARE ALMA ELIZONDO MD May 16, 2020 13:51
[2020-05-16 15:00] VITALS: BP 93/61
[2020-05-16] MEDS: HYDROcodone/APAP 5/325MG 1 TAB TABLET PO PRN (17:14)
[2020-05-16 19:00] VITALS: BP 77/45
[2020-05-16] MEDS: GABAPENTIN 100 MG CAPSULE. PO SCH (19:53)
[2020-05-16] MEDS ORDERED: DARBEPOETIN ALFA 60 MCG/0.3 ML DISP.SYRIN. SQ SCH (21:00)
[2020-05-16 22:51] VITALS: BP 81/44
[2020-05-17 03:00] VITALS: BP 75/47
[2020-05-17 07:00] VITALS: BP 106/85
[2020-05-17] MEDS: guaiFENesin DM 600/30MG 1 TAB TAB.ER.12H PO SCH (08:03)
[2020-05-17] MEDS: CINACALCET HCL 30 MG TABLET PO SCH (08:03)
[2020-05-17] MEDS: SEVELAMER CARBONATE 800 MG TABLET. PO SCH ×2 (08:04→10:39)
--- NOTE | 2020-05-17 08:06 | SNU/HH DC ---
DISCHARGE ORDERS DISCHARGE INFORMATION: FINAL DIAGNOSIS Problems Medical Problems: (1) Anemia Status: Acute (2) Chronic renal failure Status: Acute (3) Diarrhea Status: Acute CONDITION ON DISCHARGE: Stable CODE STATUS: Code Status: DNR/DNI GROUP HOME: SNF STAY <30 DAYS: Yes POST DISCHARGE ORDERS: ACTIVITY ORDERS: Activity as tolerated WEIGHT BEARING STATUS: No restrictions, Full weight bearing, As tolerated DIET AFTER DISCHARGE: Renal WOUND/INCISION CARE: No wound care needed CHECKS AFTER DISCHARGE: CHECKS AFTER DISCHARGE: Check blood press - daily, Weigh Yourself Daily TREATMENT/EQUIPMENT ORDERS: ADAPTIVE EQUIPMENT NEEDED: None Physical Therapy For: Evalulation/Treatment Occupational Therapy For: Evaluation/Treatment Speech Language Pathology For: Evaluation/Treatment DISCHARGE MEDICATIONS: Home Meds Reported Medications Loperamide Hcl (LOPERAMIDE) 2 Mg Tablet, 1 TAB PO Q6HRS PRN for DIARRHEA for 30 Days, #120 TAB 0 Refills 04/28/20 Alprazolam (ALPRAZOLAM) 0.5 Mg Tablet, 1 TAB PO BID for anxiety, #60 TAB / Cinacalcet Hcl (SENSIPAR) 30 Mg Tablet, 1 TAB PO DAILY for cinacalcet, #30 TAB 11 Refills 07/04/18 Sevelamer Carbonate (RENVELA) 800 Mg Tablet, 3 TAB PO TID for renagel, #810 TAB 3 Refills 07/04/18 Temazepam (TEMAZEPAM) 30 Mg Capsule, 30 MG PO PRN QHS 08/17/13 SHIRIN HCAN MD May 17, 2020 08:06
--- NOTE | 2020-05-17 08:10 | PDOC ---
Provider Note Date of Service: DATE: 05/17/20 TIME: 08:09 Provider Note [id number] Justifications for Admission Other Justification SHIRIN CHAN MD May 17, 2020 08:10
[2020-05-17] MEDS ORDERED: DIALYSIS PATIENT. MC PRN ×2 (08:45)
[2020-05-17] MEDS ORDERED: ALBUMIN HUMAN 25% 200 ML IV PRN (08:45)
[2020-05-17] MEDS ORDERED: IV NORMAL SALINE 1000ML BAG 1,000 ML IV PRN ×2 (08:45)
--- NOTE | 2020-05-17 10:04 | NUR ---
SW following for discharge planning. Reviewed chart and discussed with RN. Pt to discharge today, 05/17 to [facility] SNU to [facility], , (fax). Discharge orders phoned and faxed. RN to call report. Packet of clinicals ready to be sent with patient. Sofi from the facility arranged for transportation at 1400. Spoke with Lizzie at [facility], , (fax) to update on discharge plan. Pt does out-patient dialysis on Tuesdays, and Saturdays at 10:30am. Sofi from [facility] communicated understanding of this and will make arrangements for transportation to dialysis. Sofi will talk with pt about changing dialysis center to the [facility] in the future. RN notified. No additional SW needs at this time.
[2020-05-17 10:07] LABS: CALCIUM 7.2 mg/dL (8.5-10.1); CREATININE 4.3 mg/dL (0.6-1.0); POTASSIUM 3.4 mmol/L (3.5-5.1)
--- NOTE | 2020-05-17 10:17 | PDOC ---
Date of Service: DATE: 05/17/20 TIME: 10:14 Subjective: Subjective: Feels okay. Objective: Objective: D/w nurse - she is very forgetful, no diarrhea, possible DC today. Vital Signs: Vital Signs Date Time Temp Pulse Resp B/P (MAP) Pulse Ox O2 Delivery O2 Flow Rate FiO2 05/17/20 08:00 Nasal Cannula 2.0 05/17/20 07:00 98.3 77 16 106/85 (92) 90 98.3 Labs: Laboratory Tests Test 05/17/20 09:20 Sodium Level 138 mmol/L Potassium Level 3.4 mmol/L Chloride Level 100 mmol/L Carbon Dioxide Level 31 mmol/L Anion Gap 7 Blood Urea Nitrogen 15 mg/dL Creatinine 4.3 mg/dL Estimated GFR (Cockcroft-Gault) 12.0 Glucose Level 96 mg/dL Calcium Level 7.2 mg/dL PE: GEN: dialyzing LUNGS: CTAB HEART: RRR ABD: soft, non-tender NEURO/PSYCH: pleasant, forgetful A/P: ?diarrhea - not significant here; restarted on PERT Pancytopenia, ESRD on HD -- DC per primary. Justicifation of Admission Dx: Justifications for Admission: Justification of Admission Dx: Yes Respiratory Failure: Severe Resp Distress REMIGIO CHRISTIE May 17, 2020 10:17
--- NOTE | 2020-05-17 11:59 | DS ---
DATE OF DISCHARGE: 05/17/2020 HOSPITAL SUMMARY: An 79-year-old black female with end-stage renal disease and chronic diarrhea of unknown etiology, came in with continued diarrhea. She has known pancytopenia also of unknown etiology. White count 3100, platelets of around 40,000 and hemoglobin 8.2. COVID serology and C. diff toxin was negative. Chemistry profile consistent with end-stage renal disease, on dialysis. She had only minor bouts of diarrhea, which was managed with pancreatic enzymes while in the hospital under the direction of Dr. Griffin and stable and was able to be transferred to new acute care place or subacute care place, which will be below [facility] as she is unable to be cared for properly in the home by herself and her spouse. FINAL DIAGNOSES: 1. Chronic diarrhea, etiology unknown. 2. Pancytopenia, etiology undetermined. 3. End-stage renal disease, stable on dialysis. OPERATIONS, PROCEDURES, COMPLICATIONS: None. CONSULTATIONS: Dr. Padron and Dr. Ramos of [facility]. DISPOSITION: All meds remained the same. She will be using Imodium p.r.n. for diarrhea management and the pancreatic enzymes are still in progress for use and appeared to be having some benefit. She is a DNR patient. Appropriate vaccines are given. Prognosis is guarded. SHIRIN CHAN MD DR: KANDICE/nts JOB#: [id number] / [id number]
--- NOTE | 2020-05-17 12:48 | PDOC ---
Renal-Progress Notes Subjective Notes Notes FEELS VERY TIRED History of Present Illness Hx of present illness STABLE Vitals Vitals Vital Signs Date Time Temp Pulse Resp B/P (MAP) Pulse Ox O2 Delivery O2 Flow Rate FiO2 05/17/20 08:00 Nasal Cannula 2.0 05/17/20 07:00 98.3 77 16 106/85 (92) 90 98.3 Weight Weight [ ] I.O. Intake and Output Intake and Output 05/17/20 07:00 Intake Total 590 ml Balance 590 ml Intake Oral 590 ml Labs Labs Laboratory Tests Test 05/17/20 09:20 Sodium Level 138 mmol/L (136-145) Potassium Level 3.4 mmol/L (3.5-5.1) Chloride Level 100 mmol/L (98-107) Carbon Dioxide Level 31 mmol/L (21-32) Anion Gap 7 (6-14) Blood Urea Nitrogen 15 mg/dL (7-20) Creatinine 4.3 mg/dL (0.6-1.0) Estimated GFR (Cockcroft-Gault) 12.0 Glucose Level 96 mg/dL (70-99) Calcium Level 7.2 mg/dL (8.5-10.1) Review of Systems Constitutional: yes: alert, oriented Ears/Nose/Throat: Yes: no symptom reported Eyes: Yes: no symptom reported Pulmonary: Yes no symptom reported Cardiovascular: Yes no symptom reported Gastrointestional: Yes: diarrhea Genitourinary: Yes: no symptom reported Musculoskeletal: Yes: muscle stiffness, muscle atrophy Skin: Yes no symptom reported Psychiatric/Neurological: Yes: no symptom reported Endocrine: Yes: no symptom reported Physical Exam General Appearance: no apparent distress Skin: warm Respiratory: decreased breath sounds Heart: S1S2 Abdomen: soft Genitourinary: bladder flat Extremities: pulses present Neurology: alert Musculoskeletal: Weakness Assessment Assessment IMP ESRD ANEMIA DIARRHEA PANCYTOPENIA DEPRESSION PLAN ELEUTERIO NEEDED HD TODAY UF TO [facility] SUPPORTIVE CARE ALMA ELIZONDO MD May 17, 2020 12:48
--- NOTE | 2020-05-17 13:36 | NUR ---
Discharge Note: AIDEN ELIZBAETH Discharge instructions and discharge home medications reviewed with Other facility and a copy given. All questions have been answered and understanding verbalized. The following instructions and handouts were given: d/c packet sent with patient at discharge to [facility]. Transportation to [facility] at 1400 via w/c Discontinued lines and drains: Peripheral IV intact. Patient discharged to Rehab Facility with Ambulance Personnel via Wheelchair
[2020-05-17] MEDS: HYDROcodone/APAP 5/325MG 1 TAB TABLET PO PRN (13:54)
== END 2020-05-17 14:11 | DRG 391 ==
LOC: ER 10:54 → 5 NORTH 13:33
PROVIDERS: ADMIT Family Medicine; ATTEND Family Medicine
PROC: 5A1D70Z Performance of Urinary Filtration, Intermittent, Less than 6 Hours Per Day (ICD-10-PCS; principal; 2020-05-11)
PROC: 5A1D70Z Performance of Urinary Filtration, Intermittent, Less than 6 Hours Per Day (ICD-10-PCS; 2020-05-12)
PROC: 5A1D70Z Performance of Urinary Filtration, Intermittent, Less than 6 Hours Per Day (ICD-10-PCS; 2020-05-14)
PROC: 5A1D70Z Performance of Urinary Filtration, Intermittent, Less than 6 Hours Per Day (ICD-10-PCS; 2020-05-17)
DX: K52.9 Noninfective gastroenteritis and colitis, unspecified (principal); N18.6 End stage renal disease; I12.0 Hypertensive chronic kidney disease with stage 5 chronic kidney disease or end stage renal disease; D68.9 Coagulation defect, unspecified; D61.818 Other pancytopenia; I25.10 Atherosclerotic heart disease of native coronary artery without angina pectoris; Z66 Do not resuscitate; I95.9 Hypotension, unspecified; F41.9 Anxiety disorder, unspecified; F32.9 Major depressive disorder, single episode, unspecified; E66.3 Overweight; E21.3 Hyperparathyroidism, unspecified; G62.9 Polyneuropathy, unspecified; M79.606 Pain in leg, unspecified; Z20.828 Contact with and (suspected) exposure to other viral communicable diseases; Z90.12 Acquired absence of left breast and nipple; Z90.49 Acquired absence of other specified parts of digestive tract; Z99.2 Dependence on renal dialysis; Z85.3 Personal history of malignant neoplasm of breast; Z85.038 Personal history of other malignant neoplasm of large intestine; Z95.810 Presence of automatic (implantable) cardiac defibrillator; Z68.24 Body mass index [BMI] 24.0-24.9, adult
CPT/HCPCS: 36415; 80048; 80053; 83690; 83735; 85025; 85027; 87493; 94640; 99285; J0882; P9046; U0003; 97110-GO; 97530-GP; G0378; J7613